=== PATIENT | male | born 1935 | race Caucasian/White ===

== ENCOUNTER 2023-05-03 23:09 | Inpatient (IN) | payer OTHER ==
[2023-05-03 23:54] LABS: Absolute Lymphocytes (CBC) 2.3 K/uL (0.7-4.9); Hematocrit 35.6 % (39.6-49.0); Lymphocytes % 27.1 % (15.3-44.8); MCV 89.2 fL (80-100); MPV 8.1 fL (7.6-11.3); RBC Red Blood Cell Count 3.99 M/uL (4.33-5.43)
[2023-05-03 23:57] LABS: Protime INR 1.05
[2023-05-04 00:12] LABS: Albumin 3.7 g/dL (3.4-5.0); Bilirubin Direct 0.1 mg/dL (0-0.2); Bilirubin Indirect, Calculated 0.2 mg/dL (0.2-0.8); Bilirubin Total 0.3 mg/dL (0.2-1.0); Protein, Total 8.2 g/dL (6.4-8.2)
[2023-05-04] MEDS ORDERED: ONDANSETRON 4 MG (ODT) TAB ONE (00:14)
[2023-05-04] MEDS ORDERED: HYDROCODONE/APAP 5/325 MG TAB ONE (00:14)
[2023-05-04] MEDS ORDERED: HYDROCODONE/APAP 10/325 TAB ONE (02:35)
[2023-05-04] MEDS ORDERED: DIPHENHYDRAMINE 25 MG TAB/CAP ONE (02:35)
--- NOTE | 2023-05-04 03:19 | EDPHYS ---
Physician Documentation [facility] Name: Les Abdi Age: 87 yrs Sex: Male : 1935 Arrival Date: 05/03/2023 Time: 23:09 Bed 7 Private MD: ED Physician John Paul Christensen HPI: 05/03 23:13 This 87 yrs old Male presents to ER via Unassigned with complaints of Nose sp4 Bleed. 05/04 01:05 Patient is 87-year-old male who presents with a cute onset of nosebleed bilateral sp4 starting just prior to arrival patient denied any prior history of nosebleeds, denied no speaking, patient states he takes baby aspirin once a day denied any other blood thinners. Historical: - Allergies: 05/03 23:22 No Known Allergies; kd3 - Immunization history:: Adult Immunizations up to date. - Social history:: Smoking status: Patient/guardian denies using tobacco, but has a distant history of tobacco abuse. - Family history:: not pertinent. ROS: 05/04 01:05 Constitutional: Negative for fever, chills, and weight loss, Eyes: Negative for injury, sp4 pain, redness, and discharge, ENT: Negative for injury, pain, and discharge, positive acute nosebleed. Neck: Negative for injury, pain, and swelling, Cardiovascular: Negative for chest pain, palpitations, and edema, Respiratory: Negative for shortness of breath, cough, wheezing, and pleuritic chest pain, Abdomen/GI: Negative for abdominal pain, nausea, vomiting, diarrhea, and constipation, Back: Negative for injury and pain, : Negative for injury, bleeding, discharge, and swelling, MS/Extremity: Negative for injury and deformity, Skin: Negative for injury, rash, and discoloration, Neuro: Negative for headache, weakness, numbness, tingling, and seizure, Psych: Negative for depression, anxiety, Allergy/Immunology: Negative for hives, rash, and allergies Endocrine: Negative for neck swelling, polydipsia, polyuria, polyphagia, and weight changes Hematologic/Lymphatic: Negative for swollen nodes, abnormal bleeding, and unusual bruising Exam: 03:12 Constitutional: This is a well developed, well nourished patient who is awake, alert, sp4 Head/Face: Normocephalic, atraumatic. Eyes: Pupils equal round and reactive to light, extra-ocular motions intact. Lids and lashes normal. Conjunctiva and sclera are not injected. Cornea within normal limits. Periorbital areas with no swelling, redness, or edema. ENT: Nares patent. No nasal discharge, no septal abnormalities noted. Tympanic membranes are normal and external auditory canals are clear. Moderate epistaxis right nostril appears anterior, is also some mild epistaxis from the left nostril. Patient is actively spitting blood with blood draining in the back of her throat Neck: Trachea midline, no thyromegaly or masses palpated, and no cervical lymphadenopathy. Supple, full range of motion without nuchal rigidity, or vertebral point tenderness. Chest/axilla: Normal chest wall appearance and motion. Nontender with no deformity. No lesions are appreciated. Cardiovascular: Regular rate and rhythm with a normal S1 and S2. No gallops, murmurs, or rubs. Normal PMI, no JVD. No pulse deficits. Respiratory: Lungs have equal breath sounds bilaterally, clear to auscultation and percussion. No rales, rhonchi or wheezes noted. No increased work of breathing, no retractions or nasal flaring. Abdomen/GI: Soft, non-tender, with normal bowel sounds. No distension or tympany. No guarding or rebound. No evidence of tenderness throughout. Back: No spinal tenderness. No costovertebral tenderness. Male : Normal genitalia with no discharge or lesions. Skin: Warm, dry with normal turgor. Normal color with no rashes, no lesions, and no evidence of cellulitis. MS/ Extremity: Pulses equal, no cyanosis. Neurovascular intact. Full, normal range of motion. Neuro: Awake and alert, GCS 15, oriented to person, place, time, and situation. Cranial nerves II-XII grossly intact. Motor strength 5/5 in all extremities. Sensory grossly intact. Psych: Awake, alert, with orientation to person, place and time. Behavior, mood, and affect are within normal limits 03:26 ECG was reviewed by the Attending Physician. Sinus rhythm at the rate of 68 with sinus sp4 arrhythmia, left axis deviation, no ST elevation or depression. Vital Signs: 05/03 23:17 BP 142 / 81; Pulse 88; Resp 19; Pulse Ox 100% on R/A; Weight 99.79 kg; Height 5 ft. 8 kd3 in. ; 23:21 Temp 98.3(O); kd3 05/04 00:34 BP 131 / 62; Pulse 80; Resp 18; Pulse Ox 97% on R/A; rv 01:21 BP 124 / 61; Pulse 84; Resp 18; Pulse Ox 96% on R/A; rv 03:30 BP 58 / 43; Pulse 58; kl 03:40 BP 92 / 48; Pulse 69; Resp 14 S; Pulse Ox 98% on 2 lpm NC; kl 04:06 BP 123 / 58; Pulse 82; Resp 14; Pulse Ox 100% on 2 lpm NC; kl 04:18 BP 128 / 65; kl 05/03 23:17 Body Mass Index 33.45 (99.79 kg, 172.72 cm) kd3 Procedures: 05/03 23:51 Epistaxis treatment: A moderate amount of bleeding noted from both nares. Treated using sp4 posterior packing, Bleeding decreased. Will repeat assessment in 1 hour to see if the bleeding clots off . 05/04 02:22 Epistaxis treatment: Right-sided nasal packing can to some extent. It was removed and a sp4 Rhino Rocket was inserted with resolution of nasal bleeding. . MDM: 05/03 23:22 Patient medically screened. sp4 05/04 03:12 Differential diagnosis: nasal fracture, trauma, sinusitis, epistaxis r/t trauma, sp4 spontaneous epistaxis. Data reviewed: vital signs, nurses notes, lab test result(s), CBC, electrolytes, hepatic panel. Consideration of Admission/Observation Patient was admitted/placed on observation. Escalation of care including admission/observation considered. Management of patient was discussed with the following: Hospitalist: Admission Team David ADAM . ED course: Initial nasal packing has failed to stop epistaxis, nasal packing was replaced with a right-sided Rhino Rocket, patient has after that became pale and had near syncopal episode in the ER. At this time patient warrants for admission some IV hydration also repeat CBC in the morning. Dr. De Souza with ENT is on-call but since there is no active epistaxis at this time will defer ENT consult to the admitting team. . 05/03 23:22 Order name: Basic Metabolic Panel; Complete Time: 01:04 sp4 05/03 23:22 Order name: CBC with Diff; Complete Time: 01:04 sp4 05/03 23:22 Order name: LFT's; Complete Time: 01:04 sp4 05/03 23:22 Order name: PT-INR; Complete Time: 01:04 sp4 05/04 03:33 Order name: CBC with Diff; Complete Time: 04:04 la1 05/04 03:11 Order name: EKG; Complete Time: 03:12 sp4 05/03 23:22 Order name: IV Saline Lock; Complete Time: 23:47 sp4 05/03 23:22 Order name: Labs collected and sent; Complete Time: 23:47 sp4 EC:26 Rate is 60 beats/min. Rhythm is irregular, Sinus arrythmia. Left axis deviation noted. sp4 DC interval is normal. QRS interval is prolonged. QT interval is normal. T waves are Inverted in leads V5, V6. Clinical impression: No evidence of ischemia. Interpreted by me. Administered Medications: 00:09 Drug: HYDROcodone-acetaminophen PO 5 mg-325 mg 2 tabs Route: PO; rv 02:30 Follow up: Response: No adverse reaction rv 00:09 Drug: Ondansetron PO 4 mg Route: PO; rv 02:30 Follow up: Response: No adverse reaction rv 02:30 Drug: Atco PO 10 mg-325 mg 1 tabs Route: PO; rv 02:30 Drug: diphenhydrAMINE PO 25 mg Route: PO; rv 03:17 Drug: NS 0.9% IV 1000 ml Route: IV; Rate: 125 ml/hr; Site: left antecubital; kl 03:38 Follow up: Rate change 999 bolus kl 04:18 Follow up: IV Status: Completed infusion; IV Intake: 1000ml kl Disposition Summary: 05/04/23 03:18 Hospitalization Ordered Hospitalization Status: Observation sp4 Provider: Jaime Arceo sp4 Location: Telemetry/[facility] (observation) sp4 Condition: Stable sp4 Problem: new sp4 Symptoms: have improved sp4 Bed/Room Type: Standard sp4 Room Assignment: 410(05/04/23 03:57) cg Diagnosis - Syncope Near sp4 - Epistaxis sp4 - Acute anterior epistaxis right side sp4 Forms: - Medication Reconciliation Form sp4 - SBAR form sp4 Signatures: Dispatcher [employer] EDClaudia Luevanoberly, RN RN David Parker, TANK WORKER-C TANK WORKER-Cla1 Maty Palencia, TEA RN Jarrell Laswon RN RN rv Doucette, Kyli, RN RN kd3 John Paul Christensen MD MD sp4 Corrections: (The following items were deleted from the chart) 03:57 03:18 sp4
--- NOTE | 2023-05-04 03:19 | ER ---
Nurse's Notes [facility] Name: Les Abdi Age: 87 yrs Sex: Male : 1935 Arrival Date: 05/03/2023 Time: 23:09 Bed 7 Private MD: Diagnosis: Syncope Near;Epistaxis;Acute anterior epistaxis right side Presentation: 05/03 23:17 Chief complaint: Patient states: I have never had a nosebleed before in my life and i kd3 was just sitting there, watching TV and it just started gushing. I do not take a blood thinner other than an Aspirin. It started about 10 o clock and stopped and then started again. I have not used any nose sprays for my allergies. Coronavirus screen: Vaccine status: Patient reports receiving the 2nd dose of the covid vaccine. Ebola Screen: No symptoms or risks identified at this time. Initial Sepsis Screen: Does the patient meet any 2 criteria? No. Patient's initial sepsis screen is negative. Does the patient have a suspected source of infection? No. Patient's initial sepsis screen is negative. Risk Assessment: Do you want to hurt yourself or someone else? Patient reports no desire to harm self or others. Onset of symptoms was May 03, 2023. 23:17 Method Of Arrival: Ambulatory kd3 23:17 Acuity: RAIN 3 kd3 Triage Assessment: 23:22 General: Appears uncomfortable, Behavior is calm, cooperative. Pain: Denies pain. kd3 Historical: - Allergies: 23:22 No Known Allergies; kd3 - Immunization history:: Adult Immunizations up to date. - Social history:: Smoking status: Patient/guardian denies using tobacco, but has a distant history of tobacco abuse. - Family history:: not pertinent. Screenin:[facility] ED Fall Risk Assessment (Adult) History of falling in the last 3 months, rv including since admission No falls in past 3 months (0 pts) Confusion or Disorientation No (0 pts) Intoxicated or Sedated No (0 pts) Impaired Gait No (0 pts) Mobility Assist Device Used No (0 pt) Altered Elimination No (0 pt) Score/Fall Risk Level 0 - 2 = Low Risk Oriented to surroundings, Maintained a safe environment, Educated pt \T\ family on fall prevention, incl call for assistance when getting out of bed, Assessed \T\ reinforced patient's understanding of fall precautions, Provided non-skid footwear, Hourly rounding (assess needs \T\ fall precautionary measures) done, Used ambulatory aids as needed (educated on \T\ assisted with), Used gait belt as appropriate. Abuse screen: Denies threats or abuse. Denies injuries from another. Nutritional screening: No deficits noted. Tuberculosis screening: No symptoms or risk factors identified. Assessment: 23:30 General: Appears uncomfortable, Behavior is calm, cooperative. rv 23:30 Pain: Denies pain. Neuro: Level of Consciousness is awake, alert, obeys commands, rv Oriented to person, place, time, situation. Cardiovascular: Capillary refill < 3 seconds Rhythm is regular. Respiratory: Airway is patent Respiratory effort is even, unlabored. EENT: Nares with bleeding noted bilaterally. 05/04 03:36 Reassessment: pt lethargic diaphoretic BP 58 systolic MD notified NS bolus initiated pt kl awakens to verbal command answers appropriately pt reports dizziness. 03:57 Cardiovascular: Rhythm is sinus rhythm with multifocal PVCs. kl 04:18 Reassessment: Patient is alert, oriented x 3, equal unlabored respirations, skin kl warm/dry/pink. Patient denies pain at this time. Patient states feeling better. Patient states symptoms have improved. Vital Signs: 05/03 23:17 BP 142 / 81; Pulse 88; Resp 19; Pulse Ox 100% on R/A; Weight 99.79 kg; Height 5 ft. 8 kd3 in. ; 23:21 Temp 98.3(O); kd3 05/04 00:34 BP 131 / 62; Pulse 80; Resp 18; Pulse Ox 97% on R/A; rv 01:21 BP 124 / 61; Pulse 84; Resp 18; Pulse Ox 96% on R/A; rv 03:30 BP 58 / 43; Pulse 58; kl 03:40 BP 92 / 48; Pulse 69; Resp 14 S; Pulse Ox 98% on 2 lpm NC; kl 04:06 BP 123 / 58; Pulse 82; Resp 14; Pulse Ox 100% on 2 lpm NC; kl 04:18 BP 128 / 65; kl 05/03 23:17 Body Mass Index 33.45 (99.79 kg, 172.72 cm) kd3 ED Course: 05/03 23:11 Patient arrived in ED. ja2 23:13 John Paul Christensen MD is Attending Physician. sp4 23:19 Triage completed. kd3 23:22 Arm band placed on left wrist. kd3 23:30 Jarrell Garcia, RN is Primary Nurse. rv 23:30 Inserted saline lock: 20 gauge in left antecubital area, using aseptic technique. Blood rv collected. 23:52 Patient has correct armband on for positive identification. Placed in gown. Bed in low rv position. Call light in reach. Side rails up X 1. Client placed on continuous cardiac and pulse oximetry monitoring. NIBP monitoring applied. 05/04 03:17 Jaime Arceo MD is Hospitalizing Provider. sp4 03:50 Inserted saline lock: 20 gauge in right antecubital area, using aseptic technique. kl Blood collected. 03:57 CBC with Diff Sent. kl 04:26 No provider procedures requiring assistance completed. Patient admitted, IV remains in kl place. Administered Medications: 00:09 Drug: HYDROcodone-acetaminophen PO 5 mg-325 mg 2 tabs Route: PO; rv 02:30 Follow up: Response: No adverse reaction rv 00:09 Drug: Ondansetron PO 4 mg Route: PO; rv 02:30 Follow up: Response: No adverse reaction rv 02:30 Drug: [place] PO 10 mg-325 mg 1 tabs Route: PO; rv 02:30 Drug: diphenhydrAMINE PO 25 mg Route: PO; rv 03:17 Drug: NS 0.9% IV 1000 ml Route: IV; Rate: 125 ml/hr; Site: left antecubital; kl 03:38 Follow up: Rate change 999 bolus kl 04:18 Follow up: IV Status: Completed infusion; IV Intake: 1000ml Medication: 05/03 23:52 VIS not applicable for this client. rv Intake: 05/04 04:18 IV: 1000ml; Total: 1000ml. kl Outcome: 03:18 Decision to Hospitalize by Provider. sp4 04:25 Admitted to Tele via stretcher, Report called to adrian brown 04:25 Condition: stable 04:25 Demonstrated understanding of instructions. 04:55 Patient left the ED. Signatures: Stella Reno RN RN Jarrell Hill, TEA RN rv Vibha Cameron Kyli RN RN kd3 John Paul Christensen MD MD sp4 Corrections: (The following items were deleted from the chart) 05/03 23:20 23:17 Chief complaint: Patient states: I have never had a nosebleed before in my life kd3 and i was just sitting there, watching TV and it just started gushing. I do not take a blood thinner other than an Aspirin. kd3
[2023-05-04] MEDS ORDERED: NA CHLORIDE 0.9% 1,000 ML ONE (03:20)
[2023-05-04 04:00] LABS: Absolute Lymphocytes (CBC) 3.4 K/uL (0.7-4.9); Hematocrit 29.8 % (39.6-49.0); Lymphocytes % 27.1 % (15.3-44.8); MCV 89.4 fL (80-100); MPV 7.9 fL (7.6-11.3); RBC Red Blood Cell Count 3.33 M/uL (4.33-5.43)
--- NOTE | 2023-05-04 04:00 | P.HP ---
Certification for Inpatient Patient admitted to: Observation With expected LOS: <2 Midnights Patient will require the following post-hospital care: None Practitioner: I am a practitioner with admitting privileges, knowledge of patient current condition, hospital course, and medical plan of care. Services: Services provided to patient in accordance with Admission requirements found in Title 42 Section 412.3 of the Code of Federal Regulations <ManuelDavid Denis - Last Filed: 05/04/23 03:56> Patient History Date of Service: 05/04/23 Reason for admission: Epistaxis History of Present Illness: 87-year-old male with history of prostate cancer presents to the emergency department chief complaint of nosebleed. He reports he takes a daily aspirin, this evening he developed a spontaneous nosebleed, he has never had this problem before no trauma of any kind. In the ER he was evaluated found to have a right anterior epistaxis. Initially nasal packing was attempted without significant improvement, Rhino Rocket was placed in the right nare, packing in the left nare. Bleeding has since slowed, his labs are significant for hemoglobin 10.7 hematocrit 35.6 initially PT 11.5 INR 1.05 chemistry unremarkable. After bleeding has slowed patient attempted to get out of bed to use restroom and had a near syncopal episode, became hypotensive and diaphoretic. For this reason ED provider wishes to admit under observation. - Past Medical/Surgical History -: Prostate cancer -: Prostate surgery -: Cholecystectomy -: Bilateral knee replacement -: Hip surgery Psychosocial/ Personal History: Patient is retired and lives at home with his - Family History Brother -: Cancer - Social History Smoking Status: Never smoker Alcohol use: Yes CD- Drugs: No Caffeine use: Yes Place of Residence: Home <David Jackson - Last Filed: 05/04/23 03:56> Date of Service: 05/04/23 <Roque Berry - Last Filed: 05/04/23 16:38> Review of Systems 10-point ROS is otherwise unremarkable ENT: Other (Epistaxis) Gastrointestinal: Nausea <David Jackson - Last Filed: 05/04/23 03:56> Physical Examination - Physical Exam General: Alert, In no apparent distress, Oriented x3 HEENT: Atraumatic, PERRLA, Mucous membr. moist/pink, Other (Rhino Rocket present right nare, nasal packing present left nare.), EOMI, Sclerae nonicteric Neck: Supple, 2+ carotid pulse no bruit, No LAD, Without JVD or thyroid abnormality Respiratory: Clear to auscultation bilaterally, Normal air movement Cardiovascular: Regular rate/rhythm, Normal S1 S2 Capillary refill: <2 Seconds Gastrointestinal: Normal bowel sounds, No tenderness Musculoskeletal: No tenderness Integumentary: No rashes Neurological: Normal speech, Normal strength at 5/5 x4 extr, Normal tone, Normal affect - Studies Laboratory Data (last 24 hrs) 05/03/23 23:40: PT 11.5, INR 1.05 05/03/23 23:40: WBC 8.40, Hgb 11.7 L, Hct 35.6 L, Plt Count 158 05/03/23 23:40: Sodium 137, Potassium 4.0, BUN 32 H, Creatinine 1.24, Glucose 131 H, Total Bilirubin 0.3, AST 19, ALT 24, Alkaline Phosphatase 68 <David Jackson - Last Filed: 05/04/23 03:56> - Studies Laboratory Data (last 24 hrs) 05/03/23 23:40: PT 11.5, INR 1.05 05/03/23 23:40: WBC 8.40, Hgb 11.7 L, Hct 35.6 L, Plt Count 158 05/03/23 23:40: Sodium 137, Potassium 4.0, BUN 32 H, Creatinine 1.24, Glucose 131 H, Total Bilirubin 0.3, AST 19, ALT 24, Alkaline Phosphatase 68 <Rqoue Berry - Last Filed: 05/04/23 16:38> Assessment and Plan - Plan Assessment: Epistaxis-resolved Near syncope Prostate cancer Plan: Epistaxis-resolved Near syncope Per ER physician patient had a right anterior epistaxis which was resistant to treatment with nasal packing. Now with Rhino Rocket in the right nare, packing in left nare. Had a near syncopal episode after bleeding had been controlled where he became diaphoretic and hypotensive. Will repeat CBC, trend hemoglobin/hematocrit. Transfuse as necessary. Continue gentle IV fluids. Will obtain ENT consult. Prostate cancer Continue outpatient management. DVT PPX: SCD Code status: Full Discharge Plan: Home Plan to discharge in: 24 Hours - Advance Directives Does patient have a Living Will: No Does patient have a Durable POA for Healthcare: No - Code Status/Comfort Care Code Status Assessed: Yes (Full code) Critical Care: No Time Spent Managing Pts Care (In Minutes): 55 <David Jackson - Last Filed: 05/04/23 03:56> Physician Review: Patient Assessed, Agree with Above Assessment and Plan <Roque Berry - Last Filed: 05/04/23 16:38>
[2023-05-04 04:59] VITALS: BMI 33.4
[2023-05-04] MEDS ORDERED: ACETAMINOPHEN 500 MG TAB PO PRN (05:00)
[2023-05-04] MEDS ORDERED: ONDANSETRON 4 MG/2 ML VIAL IV PRN (05:00)
[2023-05-04] MEDS: NA CHLORIDE 0.9% 1,000 ML IV SCH ×2 (05:04→08:56)
[2023-05-04 05:26] VITALS: O2SAT 2
[2023-05-04 09:00] LABS: Hematocrit 28.9 % (39.6-49.0)
[2023-05-04] MEDS: ACETAMINOPHEN 325 MG TABLET PO PRN (13:25)
[2023-05-04] MEDS: CEPHALEXIN 500 MG CAP PO SCH ×2 (13:25→20:42)
[2023-05-04 14:53] LABS: Hematocrit 30.3 % (39.6-49.0)
--- NOTE | 2023-05-04 16:28 | EKG ---
Test Date: 2023-05-04 Test Time: 03:22:04 Clinical Investigator: HUGO MEASUREMENT RESULTS: Intervals: Rate: 60 MD: 182 QRSD: 130 QT: 452 QTc: 452 [place]: P: 47 MD: 182 QRS: -40 T: 235 INTERPRETIVE STATEMENTS: Sinus rhythm with marked sinus arrhythmia Left axis deviation Nonspecific intraventricular block Nonspecific T wave abnormality Abnormal ECG No previous ECG available for comparison Electronically Signed On 05-04-23 16:27:08 CDT by Dawson Blanca
--- NOTE | 2023-05-04 17:08 | CON ---
Date of Consultation: 05/04/2023 Chief Complaint: Nasal epistaxis. History Of Present Illness: Patient is a pleasant 87-year-old male with a history of prostate cancer , presented to the emergency department with a chief complaint of right nasal cavity nosebleed. He r eports that he takes a daily aspirin and he developed a spontaneous nosebleed yesterday evening. He denies any prior history of nasal trauma or nasal epistaxis or bleeding disorders. In the emergency room, he was initially evaluated to have right anterior epistaxis and a Rhino Rocket was placed into the right naris as well as a Merocel pack in the left nasal cavity. He was then admitted to [facility] and I was consulted for further evaluation. After the bleeding episode, he did become syncopal y esterday evening, but he denies any lightheadedness or diaphoresis. He is complaining of 7/10 nasal pain extending up into the forehead and he complains of mild nausea. However, he denies any posterio r oropharyngeal bleeding or blood coming out of the anterior naris. No other ENT complaints today. Past Medical And Surgical History: Prostate cancer, prostate surgery, cholecystectomy, bilateral kne e replacement, hip surgery. Psychosocial History: Patient is retired and lives at home with his . Additional Social History: Denies tobacco and uses alcohol and no drugs. Positive for caffeine use, and place of residence is home. Medication List: Patient did not bring an updated medication list, but is supposedly bringing s oon. Patient currently takes baby aspirin, but held it after bleeding episode. Allergies: NO KNOWN DRUG ALLERGIES. Family History: Brother positive for cancer. Review of Systems: Constitutional: Denies lightheadedness, diaphoresis, lethargy. Head: Positive for frontal headache. Negative for trauma. Eyes: Negative for drainage, blurred or double vision. Ears: Negative for otalgia, hearing loss, tinnitus, ear pain or drainage. Nose: Positive for bilateral nosebleed and nasal congestion secondary to nasal packing. Positive fo r moderate rhinorrhea. Throat: Negative for pain, posterior oropharyngeal blood, dysphagia, or odynophagia. Physical Examination: Vital Signs: Stable. General: Patient is awake, alert, and oriented, in no apparent distress. However, he is having mode rate nasal and forehead headache. He is oriented x3. Head: Atraumatic, normocephalic. Eyes: PERRLA/EOMI. Ears: Deferred. Nose: Bilateral nasal packing intact with no evidence of active bleeding or blood clots. Oral Cavity: Moist mucosa. Midline uvula, and no posterior oropharyngeal blood or blood clots detec libertad. Neck: Supple. Trachea midline. No lymphadenopathy or thyromegaly palpated. Laboratory Data: Initial hemoglobin was 10.7, which reduced I believe to 9.9, hematocrit was 35.6, a nd PT was 11.5 and INR was 1.05. Diagnoses: 1.Acute bilateral nasal epistaxis, resolved. 2.Near-syncope. 3.Nausea. 4.Headache. 5.History of prostate cancer. Recommendations: 1.The patient keep the packs in as bleeding has stopped. We will watch his hemoglobin and hematocri t stabilized. He is able to eat for now, but then will have him n.p.o. after midnight tonight. 2.Start Keflex 500 mg 1 p.o. t.i.d. 3.Current Tylenol and ondansetron for nausea and headache. 4.Plan is to remove the packs outpatient as we need the aspirin to get out of his system and this wi ll take several days. 5.My business card and my epistaxis protocol was given to the patient. 6.We will follow as needed. PRANEETH/SUSAN Voice ID: [id number] Report ID: [id number]
[2023-05-04 20:50] LABS: Hematocrit 29.4 % (39.6-49.0)
[2023-05-05 04:21] LABS: Absolute Lymphocytes (CBC) 1.2 K/uL (0.7-4.9); Lymphocytes % 10.5 % (15.3-44.8); MCV 88.7 fL (80-100); RBC Red Blood Cell Count 3.05 M/uL (4.33-5.43)
[2023-05-05 04:34] LABS: Potassium 4.1 mEq/L (3.5-5.1)
[2023-05-05 04:35] LABS: Protime INR 1.18
[2023-05-05] MEDS: CEPHALEXIN 500 MG CAP PO SCH ×3 (08:28→20:58)
[2023-05-05] MEDS: BICALUTAMIDE 50 MG PO SCH (11:00)
--- NOTE | 2023-05-05 11:07 | P.PN ---
Subjective Date of Service: 05/05/23 Chief Complaint: Epistaxis Overnight, he had two separate episodes of asymptomatic nonsustained ventricular tachycardia. Per telemetry officer, he had one episode of 4 beats of V. tach followed by another separate episode of 7 beats of V. tach. He reports that he feels well this morning. He denies any chest pain or palpitations. He states that his bleeding has slowed down, but his hemoglobin continues to drift downward. Per Dr. Booker, can plan for discharge with nasal packing once bleeding has stopped and hemoglobin has stabilized. We anticipate that this may take several days given that he took aspirin. Review of Systems 10-point ROS is otherwise unremarkable ENT: Other (epistaxis) Physical Examination - Vital Signs Temperature: 98.4 F Blood Pressure: 147/72 Pulse: 86 Respirations: 18 Pulse Ox (%): 95 - Physical Exam General: Alert, In no apparent distress, Oriented x3 HEENT: Atraumatic, Mucous membr. moist/pink, Other (Bilateral nares with nasal packing. Dried blood noted on packing. No active bleeding appreciated.), Sclerae nonicteric Neck: JVD not distended Respiratory: Clear to auscultation bilaterally, Normal air movement Cardiovascular: No edema, Regular rate/rhythm, Normal S1 S2, No gallops, No rubs, No murmurs Gastrointestinal: Normal bowel sounds, Soft and benign, Non-distended, No tenderness, No rebound, No guarding Musculoskeletal: No clubbing Integumentary: No rashes Neurological: Normal speech, Normal affect Assessment And Plan - Plan # Acute Blood Loss Anemia suspect due to Severe Epistaxis - Consulted Otorhinolaryngology and spoke with Dr. Booker - recommendations appreciated - Bilateral nares are packed per ENT - Prophylactic cephalexin while nares packed - Serial H&H - Serial Hgb: 11.7 - > 9.9 -> 9.8 -> 10.1 -> 9.7 -> 9.1 - Transfuse for Hgb < 7.0 - 2 large bore IVs - Hold home aspirin - Epistaxis protocol per ENT # Non-sustained Ventricular Tachycardia - Per tele, two episodes of V. Tach (one lasting 4 beats and another lasting 7 beats) - He was asymptomatic during these episodes - Potassium level acceptable - Ordered magnesium level - Continue to monitor telemetry # Prostate Cancer - Continue home bicalutamide # Dyslipidemia - Continue home simvastatin Roque Berry M.D.
[2023-05-05] MEDS: NA CHLORIDE 0.9% 1,000 ML IV SCH ×2 (15:22→20:55)
[2023-05-05 16:29] LABS: Hematocrit 26.1 % (39.6-49.0)
[2023-05-05] MEDS: ATORVASTATIN 10 MG TAB PO SCH (20:58)
[2023-05-06 04:35] LABS: Absolute Lymphocytes (CBC) 1.4 K/uL (0.7-4.9); Hematocrit 23.7 % (39.6-49.0); Lymphocytes % 12.4 % (15.3-44.8); MPV 8.4 fL (7.6-11.3); RBC Red Blood Cell Count 2.66 M/uL (4.33-5.43)
[2023-05-06 04:58] LABS: Potassium 3.9 mEq/L (3.5-5.1)
[2023-05-06] MEDS: CEPHALEXIN 500 MG CAP PO SCH ×3 (08:49→21:07)
[2023-05-06] MEDS: BICALUTAMIDE 50 MG PO SCH (08:49)
[2023-05-06] MEDS: NA CHLORIDE 0.9% 1,000 ML IV SCH ×2 (10:07→16:55)
[2023-05-06 11:35] LABS: Hematocrit 22.6 % (39.6-49.0)
[2023-05-06 18:52] LABS: Hematocrit 21.3 % (39.6-49.0)
--- NOTE | 2023-05-06 19:10 | P.PN ---
Subjective Date of Service: 05/06/23 Chief Complaint: Epistaxis No acute events overnight. He denies any active bleeding from his nose; however, his hemoglobin continues to down-trend. Discussed case with Dr. Booker, who believes he can be discharged home once his hemoglobin stabilizes. She is planning to remove his nasal packing in her office. He denies any chest pain, palpitations, or shortness of breath. Review of Systems 10-point ROS is otherwise unremarkable ENT: Other (epistaxis) Physical Examination - Vital Signs Temperature: 99.2 F Blood Pressure: 127/60 Pulse: 95 Respirations: 18 Pulse Ox (%): 96 Assessment And Plan - Plan - Physical Exam General: Alert, In no apparent distress, Oriented x3 HEENT: Atraumatic, Mucous membr. moist/pink, Other (Bilateral nares with nasal p acking. Dried blood noted on packing. No active bleeding appreciated.), Sclerae nonicteric Neck: JVD not distended Respiratory: Clear to auscultation bilaterally, Normal air movement Cardiovascular: No edema, Regular rate/rhythm, No murmurs Gastrointestinal: Normal bowel sounds, Soft, Non-distended, No tenderness Musculoskeletal: No clubbing Integumentary: No rashes Neurological: Normal speech, Normal affect # Acute Blood Loss Anemia due to Severe Epistaxis - Consulted Otorhinolaryngology and spoke with Dr. Booker - recommendations appreciated - Bilateral nares are packed per ENT - Prophylactic cephalexin while nares packed - Per Dr. Booker, plan to monitor H&H - once stable, plan for outpatient follow-up to remove nasal packing in her office - Serial H&H - Serial Hgb: 11.7 - > 9.9 -> 9.8 -> 10.1 -> 9.7 -> 9.1 -> 8.7 -> 7.9 - Transfuse for Hgb < 7.0 - 2 large bore IVs - Hold home aspirin - Epistaxis protocol per ENT # Non-sustained Ventricular Tachycardia - Per tele, two episodes of V. Tach (one lasting 4 beats and another lasting 7 beats) - He was asymptomatic during these episodes - Potassium and magnesium levels acceptable - Continue to monitor telemetry # Prostate Cancer - Continue home bicalutamide # Dyslipidemia - Continue home simvastatin Roque Berry M.D.
[2023-05-06] MEDS: ATORVASTATIN 10 MG TAB PO SCH (21:07)
[2023-05-06] MEDS: ACETAMINOPHEN 325 MG TABLET PO PRN (23:58)
[2023-05-07 05:55] LABS: Potassium 3.7 mEq/L (3.5-5.1)
[2023-05-07 08:16] LABS: Absolute Lymphocytes (CBC) 1.5 K/uL (0.7-4.9); Hematocrit 21.1 % (39.6-49.0); Lymphocytes % 16.3 % (15.3-44.8); MCV 89.2 fL (80-100); MPV 7.8 fL (7.6-11.3); RBC Red Blood Cell Count 2.36 M/uL (4.33-5.43)
[2023-05-07] MEDS: BICALUTAMIDE 50 MG PO SCH (09:00)
[2023-05-07] MEDS: CEPHALEXIN 500 MG CAP PO SCH ×3 (09:23→21:59)
--- NOTE | 2023-05-07 11:48 | P.PN ---
Date of Service: 05/07/23 Subjective: ROS: 10 point ROS as noted above, otherwise negative Physical Exam: GEN: Alert, oriented, NAD HEENT: Normal conjunctiva, sclera anicteric, Bilateral nares with nasal packing. Dried blood noted on packing CV: Regular rate & rhythm, no edema Pulm: Nonlabored respiraitons on room air ABD: Soft, nontender, nondistended MSK: No joint tenderness Integumentary: No rashes Neuro: Normal speech, normal affect vitals reviewed Problem List: Acute Blood Loss Anemia due to Severe Epistaxis Non-sustained Ventricular Tachycardia Prostate Cancer Dyslipidemia Acute Blood Loss Anemia due to Severe Epistaxis ENT Consulted - Dr. Booker Bilateral nares are packed per ENT Prophylactic cephalexin while nares packed monitor H&H - once stable, plan for outpatient follow-up to remove nasal packing in her office serial H&H. Transfuse for Hgb < 7.0 hgb 7.1 -> 7.0 (05/07) 1 uPRBC ordered (05/07) Hold home aspirin Epistaxis protocol per ENT Non-sustained Ventricular Tachycardia Per tele, two episodes of V. Tach (one lasting 4 beats and another lasting 7 beats) asymptomatic during these episodes - Potassium and magnesium levels acceptable continue to monitor on telemetry Prostate Cancer Continue home bicalutamide Dyslipidemia Continue home simvastatin VTE: SCD Code: Full Dispo: Home
[2023-05-07] MEDS: NA CHLORIDE 0.9% 1,000 ML IV SCH (13:00)
[2023-05-07] MEDS ORDERED: NA CHLORIDE 0.9% 250 ML ONE ×2 (15:23→21:31)
[2023-05-07] MEDS: ATORVASTATIN 10 MG TAB PO SCH (21:59)
[2023-05-08 03:41] LABS: Hematocrit 27.3 % (39.6-49.0)
[2023-05-08] MEDS: CEPHALEXIN 500 MG CAP PO SCH (07:49)
[2023-05-08] MEDS: NA CHLORIDE 0.9% 1,000 ML IV SCH (07:50)
[2023-05-08] MEDS: BICALUTAMIDE 50 MG PO SCH (07:50)
[2023-05-08 08:59] VITALS: BP 121/59; TEMP 98.1
--- NOTE | 2023-05-08 10:40 | P.PN ---
Date of Service: 05/06/23 ENT Progress Note Patient seen and examined. Per patient no active bleeding or blood clots and patient not coughing up blood since packs were placed. Packs are uncomfortable but not intolerable and is currently on prn pain meds and cephalexin antibiotics. Hgb has dropped to 7.0 today per IM. Exam: right nasal rhinorocket intact and small merocel pack intact, left nasal cavity. No active bleeding. Oropharynx: intact no bleeding. Impression: 1. Acute bilateral epistaxis-- stable 2. Low hemoglobin Recommendation: 1. Recommned blood transfusion first before pulling packs 2. Plan is to pull the packs once Hgb trends up
--- NOTE | 2023-05-08 11:12 | P.PN ---
Date of Service: 05/08/23 ENT Progress Note Patient seen and examined. Per patient no active bleeding or blood clots and patient not coughing up blood since packs were placed. Packs are uncomfortable but not intolerable and is currently on prn pain meds and cephalexin antibiotics. Patient was given 2 units of PRBCs and hgb has increased above 9.0. Exam: right nasal rhinorocket intact and small merocel pack intact, left nasal cavity. No active bleeding. Oropharynx: intact no bleeding. Both packs were pulled today and antibiotic ointment coated Surgicel was inserted into bilateral nasal cavities. Moustache dressing was applied. Patient tolerated well and posterior oropharynx is clear with no bleeding. Impression: 1. Acute bilateral epistaxis-- resolved. 2. Low hemoglobin--resolved s/p transfusion. Recommendation: 1. May d/c home and f/up with me in one week. 2. Recommend PCP f/up to assess for anemia, hematologic issue that may have contributed to nasal bleeding and significant drop in Hgb.
--- NOTE | 2023-05-08 12:41 | P.DS ---
Admission Date: 05/07/23 Discharge Date: 05/08/23 Disposition: ROUTINE DISCHARGE Discharge Condition: FAIR Reason for Admission: Epistaxis Brief History of Present Illness: Patient is 87 years of age admitted with sudden onset of epistaxis and drop in his hemoglobin Hospital Course: Admitted to the hospital by ENT he did have some nasal packing done there was a significant drop in his hemoglobin by at least [address] Jhony MATHIAS informed me that she did not see any visible bleeding sure is actually from the epistaxis indicates patient to follow-up with ENT and his primary care physician continue to monitor his hemoglobin and aspirin will go home on some antibiotic time of discharge he was alert no further bleeding vital signs all stable started hemoglobin 9.3 Vital Signs/Physical Exam: Temp Pulse Resp BP Pulse Ox 98.1 F 86 20 121/59 L 95 05/08/23 08:00 05/08/23 08:00 05/08/23 08:00 05/08/23 08:00 05/08/23 08:00 Laboratory Data at Discharge: WBC 9.00 thou/uL (4.3-10.9) 05/07/23 08:00 Hgb 9.3 g/dL (13.6-17.9) L D 05/08/23 03:27 Hct 27.3 % (39.6-49.0) L 05/08/23 03:27 Plt Count 125 thou/uL (152-406) L 05/07/23 08:00 PT 13.0 SECONDS (9.5-12.5) H 05/05/23 03:57 INR 1.18 05/05/23 03:57 Sodium 143 mEq/L (136-145) 05/07/23 05:04 Potassium 3.7 mEq/L (3.5-5.1) 05/07/23 05:04 BUN 27 mg/dL (7-18) H 05/07/23 05:04 Creatinine 0.89 mg/dL (0.70-1.30) 05/07/23 05:04 Glucose 121 mg/dL (74-106) H 05/07/23 05:04 Magnesium 2.2 mg/dL (1.6-2.4) 05/05/23 15:53 Total Bilirubin 0.3 mg/dL (0.2-1.0) 05/03/23 23:40 AST 19 U/L (15-37) 05/03/23 23:40 ALT 24 U/L (16-61) 05/03/23 23:40 Alkaline Phosphatase 68 U/L (45-117) 05/03/23 23:40 Home Medications: Bicalutamide 50 mg PO DAILY 05/04/23 Calcium Carbonate [Calcium] 500 mg PO BID 05/04/23 Glucos Sul 2Kcl/MSM/Chond/C/Mn [Glucosamine Chondroitin Cap] 1 each PO DAILY 05/04/23 Multivitamin/Iron/Folic Acid [Centrum Adults Tablet] 1 each PO DAILY 05/04/23 Simvastatin 20 mg PO BEDTIME 05/04/23 Cephalexin [Keflex*] 500 mg PO TID 7 Days #21 cap 05/08/23 New Medications: Cephalexin [Keflex*] 500 mg PO TID 7 Days #21 cap Physician Discharge Instructions: PROBLEM: Epistaxis, Anemia GOAL: Clear understanding of disease process INSTRUCTIONS: Please call Dr. Booker's office to schedule an appointment for Sunday. Please take medication as prescribed. Hold Aspirin If symptoms worsen, please go to the nearest ER. If you have any questions, please feel free to call . Diet: Regular Activity: Ad jessica DME DME: Date Ordered: Name of Company: [employer] Services Needed: None Name of Company: Date or Referral: IMMUNIZATION Influenza Vaccine Indicated: Influenza Vaccine Given: Date Given: Pneumonia Vaccine Indicated: No Pneumonia Vaccine Given: Date Given: Diet: Regular Activity: Ad jessica Followup: Liza Booker, [ACTIVE - CAN ADMIT] - (call to schedule appoiment for sunday)
== END 2023-05-08 09:55 | disposition home or self-care (01) | DRG 812 ==
LOC: ER 23:09 → 4TH 05-04 03:49 → OBSVTOIN 05-07 13:21
PROVIDERS: ADMIT Internal Medicine; ATTEND Internal Medicine Sleep Medicine
PROC: 2Y41X5Z Packing of Nasal Region using Packing Material (ICD-10-PCS; principal; 2023-05-07)
PROC: 30233N1 Transfusion of Nonautologous Red Blood Cells into Peripheral Vein, Percutaneous Approach (ICD-10-PCS; 2023-05-07)
DX: D62 Acute posthemorrhagic anemia (principal); I47.20 Ventricular tachycardia, unspecified; R04.0 Epistaxis; E78.5 Hyperlipidemia, unspecified; R51.9 Headache, unspecified; R11.0 Nausea; J34.89 Other specified disorders of nose and nasal sinuses; I95.9 Hypotension, unspecified; C61 Malignant neoplasm of prostate; R61 Generalized hyperhidrosis; Z79.82 Long term (current) use of aspirin; Z79.899 Other long term (current) drug therapy; Z96.653 Presence of artificial knee joint, bilateral; Z90.49 Acquired absence of other specified parts of digestive tract; Z80.9 Family history of malignant neoplasm, unspecified
CPT/HCPCS: 30901; 36415; 36430; 80048; 80076; 83735; 85014; 85018; 85025; 85610; 86850; 86900; 86901; 86920; 93005; 96360; 99285; G0378; J2405; J7030; J7050; P9016; Q0162

== ENCOUNTER 2023-08-27 19:59 | Observation (INO) | payer OTHER ==
--- OUTSIDE RECORDS SUMMARY | 2023-08-27 20:02 | XMS REPORT | Continuity of Care Document ---
:1935 Author Organization [facility] t Address [address] [facility] [address] [place] [id number] Care Team Providers Name Role Phone Romi Walters Attending Clinician Unavailable Problems This patient has no known problems. Allergies, Adverse Reactions, Alerts This patient has no known allergies or adverse reactions. Medications This patient has no known medications. Procedures This patient has no known procedures. Encounters Start End Encounter Admission Attending Care Care Encounter Source Date/Time Date/Time Type Type Clinicians Facility Department ID 2023-05-22 Outpatient ANA ROSA Walters [facility] [id number] Common 08:27:01 Romi [id number] [facility] 2023-05-09 Outpatient ANA ROSA Walters [facility] [id number] Common 14:50:01 Romi [id number] [facility] Results This patient has no known results.
[2023-08-27 20:37] LABS: Absolute Lymphocytes (CBC) 1.5 K/uL (0.7-4.9); Lymphocytes % 17.1 % (15.3-44.8); MCV 85.8 fL (80-100); MPV 7.7 fL (7.6-11.3); Platelets 185 thou/uL (152-406); RBC Red Blood Cell Count 3.84 M/uL (4.33-5.43)
--- NOTE | 2023-08-27 20:37 | ER ---
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 pt as6 had a nose bleed in the past and lost 5 letters of blood and had to receive a transfusion. Coronavirus screen: At this time, the client does not indicate any symptoms associated with coronavirus-19. Ebola Screen: No symptoms or risks identified at this time. Initial Sepsis Screen: Does the patient meet any 2 criteria? No. Patient's initial sepsis screen is negative. Does the patient have a suspected source of infection? No. Patient's initial sepsis screen is negative. Risk Assessment: Do you want to hurt yourself or someone else? Patient reports no desire to harm self or others. Onset of symptoms was August 27, 2023. 20:14 Acuity: RAIN 3 as6 20:14 Method Of Arrival: EMS: [facility] as6 Triage Assessment: 20:30 General: Appears in no apparent distress. uncomfortable, Behavior is calm, cooperative. jw7 Pain: Denies pain. EENT: Nares with bleeding noted. Neuro: Morris Agitation-Sedation Scale (RASS): 0 - Alert and Calm. Cardiovascular: No deficits noted. Capillary refill < 3 seconds Clubbing of nail beds is absent JVD is absent Patient's skin is warm and dry. Respiratory: Airway is patent Trachea midline Respiratory effort is even, unlabored, Respiratory pattern is regular, symmetrical. GI: No deficits noted. No signs and/or symptoms were reported involving the gastrointestinal system. Abdomen is round non-distended. : No deficits noted. No signs and/or symptoms were reported regarding the genitourinary system. Derm: Skin is intact, is healthy with good turgor, Skin is dry, Skin is normal, Skin temperature is warm. Musculoskeletal: No signs and/or symptoms reported regarding the musculoskeletal system. Circulation, motion, and sensation intact. Range of motion: intact in all extremities. Historical: - Allergies: 20:12 No Known Allergies; as6 - PMHx: 20:12 prostate cancer; Hypercholesterolemia; as6 - PSHx: 20:12 Cholecystectomy; knee; hip; as6 - Immunization history:: Adult Immunizations up to date. - Social history:: Smoking status: Patient denies any tobacco usage or history of. - Family history:: not pertinent. Screenin:30 [facility] ED Fall Risk Assessment (Adult) History of falling in the last 3 months, jw7 including since admission No falls in past 3 months (0 pts) Confusion or Disorientation No (0 pts) Intoxicated or Sedated No (0 pts) Impaired Gait Yes (1 pt) Mobility Assist Device Used No (0 pt) Altered Elimination No (0 pt) Score/Fall Risk Level 0 - 2 = Low Risk Oriented to surroundings, Maintained a safe environment. Abuse screen: Denies threats or abuse. Denies injuries from another. Nutritional screening: No deficits noted. Tuberculosis screening: No symptoms or risk factors identified. Assessment: 20:40 General: see triage assessment. jw7 21:30 Reassessment: Patient appears in no apparent distress at this time. No changes from jw7 previously documented assessment. Patient and/or family updated on plan of care and expected duration. Pain level reassessed. Patient is alert, oriented x 3, equal unlabored respirations, skin warm/dry/pink. 22:40 Reassessment: Patient appears in no apparent distress at this time. No changes from jw7 previously documented assessment. Patient and/or family updated on plan of care and expected duration. Pain level reassessed. Patient is alert, oriented x 3, equal unlabored respirations, skin warm/dry/pink. 23:46 Reassessment: Patient appears in no apparent distress at this time. Patient and/or jw7 family updated on plan of care and expected duration. Pain level reassessed. Patient is alert, oriented x 3, equal unlabored respirations, skin warm/dry/pink. Vital Signs: 20:12 BP 124 / 55; Pulse 81; Resp 18 S; Temp 97.4(O); Pulse Ox 99% on R/A; Weight 96.16 kg as6 (R); Height 5 ft. 8 in. (R); Pain 0/10; 21:00 BP 148 / 67; Pulse 85; Resp 18 S; Pulse Ox 99% on R/A; jw7 22:00 BP 138 / 61; Pulse 86; Resp 17 S; Pulse Ox 99% on R/A; jw7 23:00 BP 126 / 60; Pulse 85; Resp 18 S; Pulse Ox 99% on R/A; jw7 20:12 Body Mass Index 32.23 (96.16 kg, 172.72 cm) as6 20:12 Pain Scale: Adult as6 ED Course: 20:04 Patient arrived in ED. kl 20:04 Vernon Luo MD is Attending Physician. ammon 20:12 Arm band placed on. as6 20:13 Mimi Muhammad RN is Primary Nurse. jw7 20:15 Inserted saline lock: 20 gauge in right antecubital area, using aseptic technique. jw7 Blood collected. 20:15 Initial lab(s) drawn, by me, sent to lab. jw7 20:18 Triage completed. as6 20:30 Patient has correct armband on for positive identification. Bed in low position. Call jw7 light in reach. Side rails up X2. 20:35 Isac Cavanaugh MD is Hospitalizing Provider. ammon 21:03 XRAY Chest (1 view) In Process Unspecified. EDMS 21:46 Isac Cavanaugh MD is Hospitalizing Provider. [facility] 23:45 No provider procedures requiring assistance completed. Patient admitted, IV remains in jw7 place. 23:46 Provided Education on: need for admit. jw7 Administered Medications: 20:55 Drug: Ondansetron IVP 4 mg IVP once; over 2 minutes Route: IVP; Site: right antecubital;jw 23:48 Follow up: Response: No adverse reaction jw7 20:55 Drug: tranexamic acid 1000 mg IV at per protocol once; administer at a rate not to jw7 exceed 100 mg per min Route: IV; Rate: per protocol; Site: right antecubital; 21:21 Follow up: Response: No adverse reaction; IV Status: Completed infusion; IV Intake: jw7 100ml 20:56 Drug: NS 0.9% IV 1000 ml IV at 125 ml/hr continuous Route: IV; Rate: 125 ml/hr; Site: [facility] right antecubital; 23:49 Follow up: Response: No adverse reaction; IV Status: Infusion continued; IV Intake: jw7 375ml 08/28 06:13 Follow up: Response: No adverse reaction; IV Status: Completed infusion; IV Intake: jw7 625ml 08/27 20:56 Drug: Famotidine IVP 20 mg IVP once; dilute with 10 mL 0.9% NaCl; give over 2 minutes jw7 Route: IVP; Site: right antecubital; 23:48 Follow up: Response: No adverse reaction jw7 Medication: 23:45 VIS not applicable for this client. jw7 Intake: 21:21 IV: 100ml; Total: 100ml. jw7 23:49 IV: 375ml; Total: 475ml. jw7 08/28 06:13 IV: 625ml; Total: 1100ml. jw7 Outcome: 08/27 20:36 Decision to Hospitalize by Provider. ammon 21:32 ER care complete, transfer ordered by . ammon 21:47 Decision to Hospitalize by Provider. ammon 23:45 Admitted to ER Hold. Please see [facility] for further documentation. jw7 23:45 Condition: stable 23:45 Instructed on the need for admit, Demonstrated understanding of instructions, 08/28 11:37 Patient left the ED. ko1 Signatures: Dispatcher [employer] EDMS Stella Reno, RN Vernon Thomas MD MD cha Slawson, Ashby, RN RN as6 Mimi Muhammad RN RN jw7 Yanni Silva RN RN ko1
--- NOTE | 2023-08-27 20:37 | EDPHYS ---
Physician Documentation [facility] Name: Les Abdi Age: 88 yrs Sex: Male : 1935 Arrival Date: 08/27/2023 Time: 19:59 Bed 19 Private MD: ED Physician Vernon Luo HPI: 08/27 20:20 This 88 yrs old Male presents to ER via EMS with complaints of nose bleed. ammon 20:20 The patient presents with a nose bleed, that is apparently anterior, from both nares, ammon occurred from an unknown cause, nasal trauma. Onset: The symptoms/episode began/occurred just prior to arrival. Modifying factors: The symptoms are alleviated by nothing. the symptoms are aggravated by nothing. Associated signs and symptoms: Loss of consciousness: the patient experienced no loss of consciousness. Severity of symptoms: At their worst the symptoms were mild in the emergency department the symptoms are unchanged. The patient has experienced similar episodes in the past, several times. Historical: - Allergies: 20:12 No Known Allergies; as6 - PMHx: 20:12 prostate cancer; Hypercholesterolemia; as6 - PSHx: 20:12 Cholecystectomy; knee; hip; as6 - Immunization history:: Adult Immunizations up to date. - Social history:: Smoking status: Patient denies any tobacco usage or history of. - Family history:: not pertinent. ROS: 20:20 Constitutional: Negative for fever, chills, and weight loss, Eyes: Negative for injury, ammon pain, redness, and discharge, Neck: Negative for injury, pain, and swelling, Cardiovascular: Negative for chest pain, palpitations, and edema, Respiratory: Negative for shortness of breath, cough, wheezing, and pleuritic chest pain, Abdomen/GI: Negative for abdominal pain, nausea, vomiting, diarrhea, and constipation, Back: Negative for injury and pain, : Negative for injury, bleeding, discharge, and swelling, MS/Extremity: Negative for injury and deformity, Skin: Negative for injury, rash, and discoloration, Neuro: Negative for headache, weakness, numbness, tingling, and seizure, Psych: Negative for depression, anxiety, suicide ideation, homicidal ideation, and hallucinations, Allergy/Immunology: Negative for hives, rash, and allergies, Endocrine: Negative for neck swelling, polydipsia, polyuria, polyphagia, and marked weight changes, Hematologic/Lymphatic: Negative for swollen nodes, abnormal bleeding, and unusual bruising, 20:20 ENT: Positive for nose bleed, Exam: 20:20 Constitutional: This is a well developed, well nourished patient who is awake, alert, ammon and in no acute distress. Head/Face: Normocephalic, atraumatic. Eyes: Pupils equal round and reactive to light, extra-ocular motions intact. Lids and lashes normal. Conjunctiva and sclera are non-icteric and not injected. Cornea within normal limits. Periorbital areas with no swelling, redness, or edema. Neck: Trachea midline, no thyromegaly or masses palpated, and no cervical lymphadenopathy. Supple, full range of motion without nuchal rigidity, or vertebral point tenderness. No Meningismus. Chest/axilla: Normal chest wall appearance and motion. Nontender with no deformity. No lesions are appreciated. Cardiovascular: Regular rate and rhythm with a normal S1 and S2. No gallops, murmurs, or rubs. Normal PMI, no JVD. No pulse deficits. Respiratory: Lungs have equal breath sounds bilaterally, clear to auscultation and percussion. No rales, rhonchi or wheezes noted. No increased work of breathing, no retractions or nasal flaring. Abdomen/GI: Soft, non-tender, with normal bowel sounds. No distension or tympany. No guarding or rebound. No evidence of tenderness throughout. Back: No spinal tenderness. No costovertebral tenderness. Full range of motion. Male : Normal genitalia with no discharge or lesions. Skin: Warm, dry with normal turgor. Normal color with no rashes, no lesions, and no evidence of cellulitis. MS/ Extremity: Pulses equal, no cyanosis. Neurovascular intact. Full, normal range of motion. Neuro: Awake and alert, GCS 15, oriented to person, place, time, and situation. Cranial nerves II-XII grossly intact. Motor strength 5/5 in all extremities. Sensory grossly intact. Cerebellar exam normal. Normal gait. Psych: Awake, alert, with orientation to person, place and time. Behavior, mood, and affect are within normal limits. 20:20 ENT: Nose: Nasal mucosa: Dried blood. abrasion, is not appreciated, clotted blood, in both nares, nasal drainage, is not appreciated, a foreign body, is not appreciated, Mouth: is normal, no acute changes, 20:38 ECG was reviewed by the Attending Physician. [facility] Vital Signs: 20:12 BP 124 / 55; Pulse 81; Resp 18 S; Temp 97.4(O); Pulse Ox 99% on R/A; Weight 96.16 kg as6 (R); Height 5 ft. 8 in. (R); Pain 0/10; 21:00 BP 148 / 67; Pulse 85; Resp 18 S; Pulse Ox 99% on R/A; jw7 22:00 BP 138 / 61; Pulse 86; Resp 17 S; Pulse Ox 99% on R/A; jw7 23:00 BP 126 / 60; Pulse 85; Resp 18 S; Pulse Ox 99% on R/A; jw7 20:12 Body Mass Index 32.23 (96.16 kg, 172.72 cm) as6 20:12 Pain Scale: Adult as6 MDM: 20:04 Patient medically screened. [facility] 20:27 Differential diagnosis: spontaneous epistaxis. Data reviewed: vital signs, nurses [facility] notes, EMS record, lab test result(s), EKG, radiologic studies, plain films. Consideration of Admission/Observation Patient was admitted/placed on observation. Escalation of care including admission/observation considered. I considered the following discharge prescriptions or medication management in the emergency department Medications were administered in the Emergency Department. See MAR. Independent interpretation of the following test(s) in the Emergency Department EKG: See my EKG interpretation above. Historians other than the Patient: EMS: ems well informed. Spouse/Significant Other: . 08/27 20:09 Order name: Basic Metabolic Panel; Complete Time: 21:10 [facility] 08/27 20:09 Order name: CBC with Diff; Complete Time: 21:10 [facility] 08/27 20:09 Order name: LFT's; Complete Time: 21:10 [facility] 08/27 20:09 Order name: Magnesium; Complete Time: 21:10 [facility] 08/27 20:09 Order name: NT PRO-BNP; Complete Time: 21:10 [facility] 08/27 20:09 Order name: PT-INR; Complete Time: 21:10 [facility] 08/27 20:09 Order name: Troponin HS; Complete Time: 21:10 [facility] 08/27 20:19 Order name: Type And Screen [facility] 08/28 07:53 Order name: CBC with Automated Diff [facility] 08/28 08:27 Order name: Basic Metabolic Panel [facility] 08/28 08:27 Order name: NT PRO-BNP [facility] 08/28 08:27 Order name: Magnesium [facility] 08/27 20:09 Order name: XRAY Chest (1 view) [facility] 08/27 20:09 Order name: EKG; Complete Time: 20:10 [facility] 08/27 20:09 Order name: Cardiac monitoring; Complete Time: 20:39 [facility] 08/27 20:09 Order name: EKG - Nurse/Tech; Complete Time: 20:39 [facility] 08/27 20:09 Order name: IV Saline Lock; Complete Time: 20:39 [facility] 08/27 20:09 Order name: Labs collected and sent; Complete Time: 20:39 [facility] 08/27 20:09 Order name: O2 Per Protocol; Complete Time: 20:12 [facility] 08/27 20:09 Order name: O2 Sat Monitoring; Complete Time: 20:11 [facility] EC:38 Rate is 83 beats/min. Rhythm is regular. QRS [place] is Normal. [place] interval is normal. QRS ammon interval is normal. QT interval is normal. No Q waves. T waves are Normal. No ST changes noted. Clinical impression: NSR w/ Non-specific ST/T Changes and No evidence of ischemia. Interpreted by me. Reviewed by me. Administered Medications: 20:55 Drug: Ondansetron IVP 4 mg IVP once; over 2 minutes Route: IVP; Site: right antecubital;[facility] 23:48 Follow up: Response: No adverse reaction [facility] 20:55 Drug: tranexamic acid 1000 mg IV at per protocol once; administer at a rate not to jw7 exceed 100 mg per min Route: IV; Rate: per protocol; Site: right antecubital; 21:21 Follow up: Response: No adverse reaction; IV Status: Completed infusion; IV Intake: jw7 100ml 20:56 Drug: NS 0.9% IV 1000 ml IV at 125 ml/hr continuous Route: IV; Rate: 125 ml/hr; Site: [facility] right antecubital; 23:49 Follow up: Response: No adverse reaction; IV Status: Infusion continued; IV Intake: jw7 375ml 08/28 06:13 Follow up: Response: No adverse reaction; IV Status: Completed infusion; IV Intake: jw7 625ml 08/27 20:56 Drug: Famotidine IVP 20 mg IVP once; dilute with 10 mL 0.9% NaCl; give over 2 minutes jw7 Route: IVP; Site: right antecubital; 23:48 Follow up: Response: No adverse reaction jw7 Disposition Summary: 08/27/23 21:47 Hospitalization Ordered Notes: Hospitalization Status: Observation(08/27/23 21:47) ammon Provider: Isac Cavanaugh(08/27/23 21:47) ammon Condition: Stable(08/27/23 21:47) ammon Problem: new(08/27/23 21:47) ammon Symptoms: have improved(08/27/23 21:47) ammon Bed/Room Type: Standard(08/27/23 21:47) ammon Location: Telemetry/MedSurg (observation)(08/28/23 11:21) bd Room Assignment: 228(08/28/23 11:21) bd Diagnosis - Epistaxis(08/27/23 21:47) ammon - assisted (current) use of anticoagulants(08/27/23 21:47) ammon - Anemia, unspecified(08/27/23 21:47) ammon Forms: - Medication Reconciliation Form ammon - SBAR form ammon - Leadership Thank You Letter ammon Signatures: Dispatcher [employer] EDMS Morena Farris Corey, MD MD cha Garcia, Cindy, RN Elio Srivastava RN RN as6 Mimi Muhammad RN RN jw7 Corrections: (The following items were deleted from the chart) 21:31 20:36 Observation ammon ammon 21:31 20:36 Isac Cavanaugh ammon ammon 21:31 20:36 Telemetry/MedSurg (observation) ammon ammon 21:31 20:36 Stable ammon ammon 21:31 20:36 new ammon ammon 21:31 20:36 have improved ammon ammon 21:31 20:36 Standard ammon ammon 21:31 20:36 ammon ammon 21:31 20:36 Epistaxis ammon ammon 21:31 20:36 assisted (current) use of anticoagulants ammon ammon 21:31 21:21 Anemia, unspecified ammon ammon 21:46 21:32 [place] [facility] ammon ammon 21:46 21:32 [employer] ammon ammon 21:46 21:32 Higher level of care ammon ammon 46 21:32 Fair ammon ammon 46 21:32 new ammon ammon 46 21:32 have improved ammon ammon 21:32 Epistaxis ammon ammon 46 21:32 Coagulation defect, unspecified ammon ammon 46 21:32 Anemia, unspecified ammon ammon 22:00 21:47 Telemetry/MedSurg (observation) ammon cg 22:00 21:47 ammon cg 08/28 11:21 08/27 22:00 BR ER HOLD cg bd 08/28 11:21 08/27 22:00 ERHOLD- cg bd
[2023-08-27] MEDS ORDERED: ONDANSETRON 4 MG/2 ML VIAL ONE (20:38)
[2023-08-27] MEDS ORDERED: FAMOTIDINE 20 MG/2 ML VIAL IV ONE (20:38)
[2023-08-27] MEDS ORDERED: NA CHLORIDE 0.9% 1,000 ML ONE (20:38)
[2023-08-27] MEDS ORDERED: TRANEXAMIC ACID 1,000 MG/10 ML VIAL IV ONE (20:38)
[2023-08-27] MEDS ORDERED: NA CHLORIDE 0.9% 100 ML ONE (20:42)
[2023-08-27 20:46] LABS: Protime INR 1.22
[2023-08-27 20:52] LABS: Albumin 3.1 g/dL (3.4-5.0); Bilirubin Direct 0.1 mg/dL (0-0.2); Bilirubin Indirect, Calculated 0.2 mg/dL (0.2-0.8); Bilirubin Total 0.3 mg/dL (0.2-1.0); Magnesium 2.4 mg/dL (1.6-2.4); Protein, Total 7.9 g/dL (6.4-8.2); Troponin High Sensitivity 26.7 pg/mL (<58.9)
--- NOTE | 2023-08-27 20:53 | P.HP ---
Certification for Inpatient Patient admitted to: Observation With expected LOS: <2 Midnights Patient will require the following post-hospital care: None Practitioner: I am a practitioner with admitting privileges, knowledge of patient current condition, hospital course, and medical plan of care. Services: Services provided to patient in accordance with Admission requirements found in Title 42 Section 412.3 of the Code of Federal Regulations Patient History Date of Service: 08/27/23 Reason for admission: Epistaxis History of Present Illness: 88-year-old male with a past medical history of hyperlipidemia, prostate cancer presents to the emergency room with nosebleed. Patient presents with bilateral near epistaxis that started prior to arrival. The patient reports similar symptoms in the past. He denies dizziness, loss of consciousness, trauma. Plan to admit for epistaxis, Dr. Booker to consult for scope in the a.m. 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 Laboratory evaluation normocytic anemia 11.2, 33.0, acute kidney injury, unknown baseline BUN 29 creatinine 1.33, GFR 52, glucose 175, BNP 1193, hypoalbumin, Allergies No Known Allergies Allergy (Verified 05/04/23 05:00) Home Medications: Bicalutamide 50 mg PO DAILY 05/04/23 Calcium Carbonate [Calcium] 500 mg PO BID 05/04/23 Glucos Sul 2Kcl/MSM/Chond/C/Mn [Glucosamine Chondroitin Cap] 1 each PO DAILY 05/04/23 Multivitamin/Iron/Folic Acid [Centrum Adults Tablet] 1 each PO DAILY 05/04/23 Simvastatin 20 mg PO BEDTIME 05/04/23 Cephalexin [Keflex*] 500 mg PO TID 7 Days #21 cap 05/08/23 - Past Medical/Surgical History -: Prostate cancer -: Chronic anticoagulation -: Hyperlipidemia -: Prostate surgery -: Cholecystectomy -: Bilateral knee replacement -: Hip surgery Psychosocial/ Personal History: Patient is retired and lives at home with his - Family History Brother -: Cancer - Social History Smoking Status: Never smoker Alcohol use: No CD- Drugs: No Caffeine use: No Place of Residence: Home Review of Systems 10-point ROS is otherwise unremarkable Physical Examination - Physical Exam General: Alert, In no apparent distress, Oriented x3 HEENT: Atraumatic, Normocephalic, Other (Nare bleeding controlled with pressure dressing) Neck: Supple, 2+ carotid pulse no bruit Cardiovascular: No edema, Normal pulses, Regular rate/rhythm Capillary refill: <2 Seconds Gastrointestinal: Normal bowel sounds, Soft and benign Musculoskeletal: No clubbing, No swelling Neurological: Normal speech, Normal strength at 5/5 x4 extr - Studies Laboratory Data (last 24 hrs) 08/27/23 08/27/23 08/27/23 20:19 20:19 20:19 WBC 8.60 Hgb 11.2 L Hct 33.0 L Plt Count 185 PT 13.4 H INR 1.22 Sodium 138 Potassium 4.0 BUN 29 H Creatinine 1.33 H Glucose 175 H Magnesium 2.4 Total Bilirubin 0.3 AST 14 L ALT 16 Alkaline Phosphatase 48 Assessment and Plan - Plan Assessment plan Epistaxis Chronic anticoagulation asaprin acute kidney injury, unknown baseline Elevated BNP Normocytic anemia Hyperlipidemia History of prostate cancer DVT prophylaxis Assessment plan Epistaxis Chronic anticoagulation Dr. Booker to evaluate with scope in am N.p.o. after midnight Elevated BNP Trend BNP BNP 1193, CXR IMPRESSION: Mild COPD. acute kidney injury, unknown baseline acute kidney injury, unknown baseline BUN 29 creatinine 1.33, GFR 52 Trend kidney function Normocytic anemia normocytic anemia 11.2, 33.0 Trend H&H Hyperlipidemia History of prostate cancer Resume appropriate home meds Full code Diet n.p.o. after midnight DVT prophylaxis Discharge Plan: Home Plan to discharge in: 24 Hours - Advance Directives Does patient have a Living Will: No Does patient have a Durable POA for Healthcare: No - Code Status/Comfort Care Code Status: Full Code Physician Review: Patient Assessed, Agree with Above Assessment and Plan Critical Care: No Time Spent Managing Pts Care (In Minutes): 50
--- NOTE | 2023-08-27 21:14 | RAD REPORT ---
EXAM DESCRIPTION: RAD - Chest Single View - 08/27/2023 9:01 pm CLINICAL HISTORY: COUGH Chest pain. COMPARISON: No comparisons FINDINGS: Portable technique limits examination quality. The lungs are mildly emphysematous but grossly clear. The heart is normal in size. No displaced fract ures. IMPRESSION: Mild COPD.
[2023-08-28 01:31] VITALS: BMI 32.1
[2023-08-28] MEDS ORDERED: ACETAMINOPHEN 500 MG TAB PO PRN (01:33)
[2023-08-28 07:51] LABS: Hematocrit 32.9 % (39.6-49.0); Lymphocytes % 20.9 % (15.3-44.8); MCV 85.9 fL (80-100); MPV 7.4 fL (7.6-11.3); Platelets 175 thou/uL (152-406); RBC Red Blood Cell Count 3.83 M/uL (4.33-5.43)
[2023-08-28 08:27] LABS: Magnesium 2.3 mg/dL (1.6-2.4); Potassium 4.5 mEq/L (3.5-5.1)
--- NOTE | 2023-08-28 11:19 | EKG ---
Test Date: 2023-08-27 Test Time: 20:35:06 Roof Foreman: MEASUREMENT RESULTS: Intervals: Rate: 83 MS: 164 QRSD: 134 QT: 402 QTc: 472 [place]: P: 24 MS: 164 QRS: -28 T: -19 INTERPRETIVE STATEMENTS: Sinus rhythm with sinus arrhythmia with occasional premature ventricular complexes Nonspecific intraventricular block Cannot rule out Septal infarct, age undetermined Abnormal ECG Compared to ECG 05/04/2023 03:22:04 Ventricular premature complex(es) now present Myocardial infarct finding now present Left-axis deviation no longer present T-wave abnormality no longer present Electronically Signed On 08-28-23 11:17:59 CDT by Dawson Blanca
[2023-08-28] MEDS ORDERED: Ringers Lactate 1,000 ML IV ONE (12:06)
--- NOTE | 2023-08-28 12:26 | CON ---
Date of Consultation: 08/28/2023 Chief Complaint: Acute right nasal bleeding. History Of Present Illness: The patient is a very pleasant 88-year-old male, who has a past medical history of right nasal epistaxis, who presented to the emergency room 1 month ago for acute posterior nasal bleed. He was packed at that time and discharged home and seen in the outpatient setting. He presents yesterday evening with the same complaints. He was watching TV and abruptly had a large amount of blood coming out of the right nasal cavity and also, he was swallowing copious amounts for blood. He presented to the emergency room and was seen by Dr. Luo. At the time, he was seen. Dr. Luo could not localize the bleed, but he did stop bleeding and then, I was consulted for further evaluation. Upon arrival to his bedside, he is in no acute distress, although his blood pressure is elevated at 137/118 with pulse oximetry of 97 and heart rate of 78. He is stable and not actively bleeding. He denies dizziness or loss of consciousness, but he has had multiple episodes of nasal trauma in the past with sports injuries. He was on anticoagulants at one time, but his map maker took him off. No other ENT complaints today. Past Medical History: Hyperlipidemia, prostate cancer, and high cholesterol. Past Surgical History: Prostate surgery, cholecystectomy, bilateral knee replacement and hip surgery. Medications: Bicalutamide, calcium carbonate, multivitamin, simvastatin, and previous use of cephalexin, no longer taking. Allergies: NO KNOWN DRUG ALLERGIES. Family History: Brother positive for cancer. Social History: Denies tobacco, alcohol, or illicit drugs. Review of Systems: General: No fever, fatigue, or lethargy. Head: Denies headaches or head trauma. Eyes: Denies drainage or double/blurred vision. Ears: Denies otorrhea or otalgia, hearing loss or tenderness. Nose: Positive for right nasal cavity bleeding, which has subsided, but denies nasal congestion, rhinorrhea, or postnasal drip. Throat: Positive for some oropharyngeal streaking of blood, but negative for any blood clots, sore throat, or dysphagia. Physical Examination: Vital Signs: Stable. General: The patient is awake, alert, and oriented to person, place, and time. Head: Atraumatic, normocephalic. Eyes: PERRLA/EOMI. Nose: Bilateral nasal speculum exam was performed. The patient was somewhat anxious during the exam. He has significant bilateral inferior and middle turbinate hypertrophy, which makes it difficult to see exactly where the patient is oozing from. There was no evidence of left nasal cavity bleeding whatsoever. It appears that the culprit is the right posterior nasal cavity. Throat: After having the patient sipping on water and having him swallow, there is a very fine streak of fresh blood noted in the posterior oropharynx, but no active profuse bleeding or blood clots. Neck: Supple. Trachea midline. Laboratory Data: White blood cell count 8.6, hemoglobin 11.2. PT is 13.4, INR is 1.22. Hematocrit 33.0. Diagnoses: 1. Recurrent right nasal cavity epistaxis. 2. Moderate anxiety and elevated blood pressure. Recommendations: 1. Recommend we put the patient under general sedation with endoscopic exam of bilateral nasal cavities with direct visualization of the culprit site of bleeding and Bovie cauterization. 2. Plan is to discharge home after the procedure. 3. Keep the patient n.p.o. and Dr. Arceo was notified. PRANEETH/SUSAN Voice ID: [id number] Report ID: [id number] MYRNA
[2023-08-28] MEDS ORDERED: propofoL 200 MG/20 ML VIAL IV ONE (12:28)
[2023-08-28] MEDS ORDERED: FENTANYL CITR 100 MCG/2 ML ONE ×2 (12:28→14:00)
[2023-08-28] MEDS ORDERED: LIDOCAINE 2% MPF 5 ML VIAL ONE (12:28)
[2023-08-28] MEDS ORDERED: dexAMETHasone 10 MG/ML VIAL ONE (12:28)
[2023-08-28] MEDS ORDERED: ONDANSETRON 4 MG/2 ML VIAL ONE (12:30)
[2023-08-28] MEDS ORDERED: BACITRACIN OINTMENT 14 GM TUBE TOP ONE (12:34)
[2023-08-28] MEDS ORDERED: NA CHLORIDE 0.9% 250 ML ONE (12:35)
[2023-08-28] MEDS ORDERED: OXYMETAZOLINE HCL 0.05% 15ML NAS ONE (12:35)
[2023-08-28] MEDS ORDERED: EPINEPHRINE/PF 1 MG/ML AMP ONE (12:35)
[2023-08-28] MEDS ORDERED: LIDOCAINE HCL/EPINEPHRINE 20 ML MDV ONE (12:35)
[2023-08-28] MEDS ORDERED: EPHEDRINE SULF 50 MG/ML VIAL ONE (13:39)
[2023-08-28] MEDS ORDERED: ACETAMINOPHEN 325 MG TABLET PO PRN (14:22)
[2023-08-28 15:22] VITALS: O2SAT 96
[2023-08-28] MEDS: CEFAZOLIN 2 GM in NA CHLORIDE 0.9% 100 ML IVPB SCH (16:28)
--- NOTE | 2023-08-28 19:07 | P.PN ---
Subjective Date of Service: 08/28/23 Chief Complaint: Epistaxis Status post fall cautery and posterior nasal packing by ENT Dr. Booker. No bleeding since cautery. Physical Examination - Vital Signs Temperature: 97.0 F Blood Pressure: 137/62 Pulse: 84 Respirations: 14 Pulse Ox (%): 88 - Studies Laboratory Data (last 24 hrs) 08/27/23 08/27/23 08/27/23 20:19 20:19 20:19 WBC 8.60 Hgb 11.2 L Hct 33.0 L Plt Count 185 PT 13.4 H INR 1.22 Sodium 138 Potassium 4.0 BUN 29 H Creatinine 1.33 H Glucose 175 H Magnesium 2.4 Total Bilirubin 0.3 AST 14 L ALT 16 Alkaline Phosphatase 48 Assessment And Plan - Plan Physical Exam General: Alert, In no apparent distress, Oriented x3 HEENT: No epistaxis. Cardiovascular: No edema, Normal pulses, Regular rate/rhythm Gastrointestinal: Normal bowel sounds, Soft and benign Musculoskeletal: No clubbing, No swelling Neurological: Normal speech, Normal strength at 5/5 x4 extr Assessment plan Epistaxis Chronic anticoagulation asaprin Acute kidney injury Normocytic anemia Hyperlipidemia History of prostate cancer Assessment plan Epistaxis Chronic anticoagulation Status post cauterization. Monitor overnight for active bleeding Monitor H&H per ENT recommendation. Empiric IV cefazolin. Acute kidney injury, unknown baseline Acute kidney injury, unknown baseline BUN 29 creatinine 1.33, GFR 52 Trend kidney function Encourage oral intake. Gentle IV hydration. Normocytic anemia normocytic anemia 11.2, 33.0 Trend H&H Hyperlipidemia History of prostate cancer Continue home medications. Full code DVT prophylaxis: SCD Discharge Plan: Home
[2023-08-28] MEDS ORDERED: NA CHLORIDE 0.9% 1,000 ML IV SCH (20:00)
[2023-08-28] MEDS: Mupirocin NASAL 2 APPL/1 GM TUBE NAS SCH (21:08)
[2023-08-29] MEDS: CEFAZOLIN 2 GM in NA CHLORIDE 0.9% 100 ML IVPB SCH ×2 (01:00→09:00)
[2023-08-29 08:50] LABS: Absolute Lymphocytes (CBC) 0.9 K/uL (0.7-4.9); Hematocrit 29.9 % (39.6-49.0); Lymphocytes % 7.4 % (15.3-44.8); MCV 84.5 fL (80-100); MPV 7.7 fL (7.6-11.3); Platelets 155 thou/uL (152-406); RBC Red Blood Cell Count 3.54 M/uL (4.33-5.43)
[2023-08-29 08:56] LABS: Protime INR 1.19
[2023-08-29] MEDS: Mupirocin NASAL 2 APPL/1 GM TUBE NAS SCH (09:00)
--- NOTE | 2023-08-29 09:50 | PN ---
Date of Progress Note: 08/29/2023 Subjective: Arrived to patient's bedside and he states that he has not had any bleeding since the pr ocedure yesterday. 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 The pain is controlled with me dications and he has had no other issues overnight. 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 Diagnoses: 1.Acute bilateral posterior nasal epistaxis, status post cauterization. 2.Suspected anemia or blood coagulopathy. Recommendations: From my standpoint, patient is cleared to be discharged with the hopes of following up with a drain tiler. This was discussed with Dr. Keyes. PRANEETH/SUSAN Voice ID: [id number] Report ID: [id number]
--- NOTE | 2023-08-29 10:14 | OP ---
Date of Procedure: 08/28/2023 Surgeon: DENNIS KYLE Preoperative Diagnosis: Acute right posterior nasal epistaxis. Postoperative Diagnosis: Bilateral posterior nasal epistaxis. Procedure: Bilateral nasal endoscopy with extensive cautery and packing of bilateral posterior nasal epistaxis under general sedation. Anesthesia: General endotracheal anesthesia was administered. Afrin-soaked nasal pledgets were utilized for vasoconstriction and decongestion. Estimated Blood Loss: Approximately 10 mL. Specimens: None. Findings: Bilateral dilated vasculature noted around the sphenopalatine foramen and extending up into the area of the ethmoid bulla. Active fresh bleeding noted with no evidence of nasal trauma or inciting factors to explain the amount of bleeding. Complications: None. Disposition: Stable. The patient tolerated the procedure well. Indication For Procedure: The patient is a pleasant 88-year-old male with a history of recurrent epistaxis. He presented to our emergency room with cinthia right nasal cavity bleeding that is noticed into both nasal cavities. These were indications to bring the patient to proceed for the above-mentioned procedure. He understood, all questions were answered. Risks versus benefits and complications were explained in detail and a consent form was signed which was placed in the chart. Description Of Procedure: Patient was transferred from the preoperative holding area to the operative suite by Department of Anesthesia, placed on the operating table, supine, sedated, intubated in normal fashion. Afrin-soaked nasal pledgets were introduced into bilateral nasal cavities, in order for there to be vasoconstriction and decongestion of the intranasal cavity. The patient was then prepped and draped. The pledgets were removed, and utilizing a rigid 0-degree nasal endoscope, it was introduced bilaterally along the floor back to the level of the nasopharynx. The patient had significant right nasal septal deviation and bilateral middle turbinate hypertrophy. Once I medialized the middle turbinates, I could detect the sphenopalatine foramen and there were multiple dilated submucosal vessels. The patient was actively oozing from these areas, thus I used cautery on a setting of 20, then 25 for coagulation to stop the bleeding. This bleeding radiated to bilateral ethmoid bulla, and thus I had to cauterize these areas as well. Once hemostasis was achieved, I coated Surgicel packing with FloSeal and inserted it into bilateral nasal cavities at the sites of bleeding. A mustache dressing was placed. He tolerated the procedure well. He was transferred back to Department of Anesthesia in stable condition, where he was subsequently awakened, extubated, and transferred to the postoperative care unit in stable condition, and then back to the medical floor. The goal was to try and get him home tomorrow, and hopefully to follow up with Hematology as I suspect the bleeding disorder, possibly anemia. PRANEETH/SUSAN Voice ID: [id number] Report ID: [id number] MYRNA
[2023-08-29 10:15] VITALS: BP 124/59; TEMP 97
--- NOTE | 2023-08-29 10:21 | P.DS ---
Admission Date: 08/27/23 Discharge Date: 08/29/23 Disposition: ROUTINE DISCHARGE Discharge Condition: FAIR Reason for Admission: Epistaxis Brief History of Present Illness: 88-year-old male with a past medical history of hyperlipidemia, prostate cancer presents to the emergency room with nosebleed. Patient presented with bilateral epistaxis that started prior to arrival. The patient reported similar symptoms in the past. He denied dizziness, loss of consciousness, trauma. Dr. Booker to consulted to evaluate patient. Posterior nasal packing done and patient admitted for further management. Hospital Course: Diagnosis Epistaxis Chronic anticoagulation asaprin Acute kidney injury Normocytic anemia Hyperlipidemia History of prostate cancer Patient admitted to the medical floor and the following medical problems addressed: Epistaxis Chronic anticoagulation Seen and evaluated by ENT Dr. Booker, status post cauterization. No more epistaxis after the procedure H&H was stable. Patient was on empiric IV cefazolin. ENT suspect possible bleeding/coagulation disorder and recommended follow-up with hematology as outpatient. Patient is discharged with Augmentin and refered to see Dr. Barron as outpatient. Acute kidney injury, unknown baseline Acute kidney injury, unknown baseline BUN 29 creatinine 1.33, GFR 52 Renal function trended down with IV hydration. Normocytic anemia Hemoglobin trended down slightly but overall stable. Hyperlipidemia History of prostate cancer Continued home medications. Vital Signs/Physical Exam: Temp Pulse Resp BP Pulse Ox 97.8 F 74 16 101/61 92 08/29/23 05:46 08/29/23 05:46 08/29/23 05:46 08/29/23 05:46 08/29/23 05:46 General: Alert, In no apparent distress, Oriented x3 HEENT: Mucous membr. moist/pink Neck: Supple, JVD not distended Respiratory: Clear to auscultation bilaterally, Normal air movement Cardiovascular: Regular rate/rhythm, Normal S1 S2 Gastrointestinal: Normal bowel sounds, Soft and benign, Non-distended, No tenderness Musculoskeletal: No swelling Integumentary: No rashes, No cyanosis Neurological: Normal speech, Normal strength at 5/5 x4 extr Laboratory Data at Discharge: WBC 12.60 thou/uL (4.3-10.9) H 08/29/23 08:33 Hgb 10.3 g/dL (13.6-17.9) L 08/29/23 08:33 Hct 29.9 % (39.6-49.0) L 08/29/23 08:33 Plt Count 155 thou/uL (152-406) 08/29/23 08:33 PT 13.1 SECONDS (9.5-12.5) H 08/29/23 08:33 INR 1.19 08/29/23 08:33 APTT 27.6 SECONDS (24.3-36.9) 08/29/23 08:33 Sodium 140 mEq/L (136-145) 08/28/23 07:35 Potassium 4.5 mEq/L (3.5-5.1) 08/28/23 07:35 BUN 27 mg/dL (7-18) H 08/28/23 07:35 Creatinine 1.30 mg/dL (0.70-1.30) 08/28/23 07:35 Glucose 112 mg/dL (74-106) H 08/28/23 07:35 Magnesium 2.3 mg/dL (1.6-2.4) 08/28/23 07:35 Total Bilirubin 0.3 mg/dL (0.2-1.0) 08/27/23 20:19 AST 14 U/L (15-37) L 08/27/23 20:19 ALT 16 U/L (16-61) 08/27/23 20:19 Alkaline Phosphatase 48 U/L (45-117) 08/27/23 20:19 Home Medications: Bicalutamide 50 mg PO DAILY 05/04/23 Calcium Carbonate [Calcium] 500 mg PO BID 05/04/23 Glucos Sul 2Kcl/MSM/Chond/C/Mn [Glucosamine Chondroitin Cap] 1 each PO DAILY 05/04/23 Multivitamin/Iron/Folic Acid [Centrum Adults Tablet] 1 each PO DAILY 05/04/23 Simvastatin 20 mg PO BEDTIME 05/04/23 Amox/Clavulanate [Augmentin 875-125 Tab] 1 each PO BID #10 tab 08/29/23 Mupirocin Calcium [Bactroban Nasal*] 1 appl YANI BID #1 tube 08/29/23 New Medications: Amox/Clavulanate [Augmentin 875-125 Tab] 1 each PO BID #10 tab Mupirocin Calcium [Bactroban Nasal*] 1 appl YANI BID #1 tube Diet: AHA Activity: Ad jessica Followup: Marissa Tsang MD [ACTIVE - CAN ADMIT] - 1-2 Weeks Romi Walters MD [Primary Care Provider] - Time spent managing pt's care (in minutes): 27
== END 2023-08-29 12:05 | disposition home or self-care (01) ==
LOC: ER 19:59 → ERHOLD 21:02 → 2ND 08-28 11:26
PROVIDERS: ADMIT Internal Medicine; ATTEND Internal Medicine
PROC: 09JK8ZZ Inspection of Nasal Mucosa and Soft Tissue, Via Natural or Artificial Opening Endoscopic (ICD-10-PCS; principal; 2023-08-28 12:00)
DX: R04.0 Epistaxis (principal); E78.5 Hyperlipidemia, unspecified; N17.9 Acute kidney failure, unspecified; D64.9 Anemia, unspecified; Z85.46 Personal history of malignant neoplasm of prostate; Z79.01 Long term (current) use of anticoagulants; E78.00 Pure hypercholesterolemia, unspecified
CPT/HCPCS: 96365; 96361; 93005; 85025 ×3; 80048 ×2; 36415 ×2; 86900; 83735 ×2; 86850; 85610 ×2; 86901; 80076; 85730; 84484; 83880 ×2; 71045; 96375; 99285; 31238; J2704; J2001; J3010 ×2; J1100; J2405 ×2; J7120; J7050; J7030 ×2; J0690 ×2; G0378; J0171

== ENCOUNTER → 2024-01-21 | Emergency (ER) | payer OTHER ==
[~2024-01-21] MED LIST: PHENYLEPHRINE 0.5% NOSE 15ML NAS ONE
--- OUTSIDE RECORDS SUMMARY | 2024-01-21 03:11 | XMS REPORT | Continuity of Care Document ---
Author Name Unknown Address [address] [facility] [address] [place] [address] [facility] [address] [place] [address] Care Team Providers Care Strategic Marketing Associate Name Role Phone Romi Walters Attending Clinician Unavailable Problems Condition Name Condition Details Condition Category Status Onset Date Resolution Date Last Treatment Date Treating Clinician Comments Source [id number] Stage 3a chronic kidney disease (CKD) Problem [facility] [id number] Mixed hyperlipid emia Problem [facility] [id number] Prostate cancer Problem [facility] Allergies, Adverse Reactions, Alerts Allergy Name Allergy Type Status Severity Reaction(s) Onset Date Inactive Date Treating Clinician Comments Source morphine morphine Active dizziness Com mon [facility] Social History Social Habit Start Date Stop Date Quantity Comments Source History of Tobacco Use [facility] Sex Assigned At [facility] Smoking Status Start Date Stop Date Source Former Smoker 2023-08-17 00:00:00 2023-08-17 00:00:00 [facility] Medications Ordered Medication Name Filled Medication Name Start Date Stop Date Current Medication? Ordering Clinician Indication Dosage Frequency Signature (SIG) Comments Components Source Simvastatin 20 MG Simvastatin 20 MG No 1{table t_in_th e_eveni ng} QD Simvastati n 20 MG Calcium 500 MG Calcium 500 MG No 1{table t_with_ meals} BID Calcium 500 MG Bicalutamid e 50 MG Bicalutamid e 50 MG No 1{table t} QD Bicalutami de 50 MG Iron (Ferrous Sulfate) 75 (15 Fe) MG/ML Iron (Ferrous Sulfate) 75 (15 Fe) MG/ML No Iron (Ferrous Sulfate) 75 (15 Fe) MG/ML Simvastatin 20 MG Simvastatin 20 MG No 1{table t_in e_eveni ng} QD Simvastati n 20 MG Calcium 500 MG Calcium 500 MG No 1{table t_with_ meals} BID Calcium 500 MG Bicalutamid e 50 MG Bicalutamid e 50 MG No 1{table t} QD Bicalutami de 50 MG Iron (Ferrous Sulfate) 75 (15 Fe) MG/ML Iron (Ferrous Sulfate) 75 (15 Fe) MG/ML No Iron (Ferrous Sulfate) 75 (15 Fe) MG/ML Simvastatin 20 MG Simvastatin 20 MG No 1{table t_in e_eveni ng} QD Simvastati n 20 MG Calcium 500 MG Calcium 500 MG No 1{table t_with_ meals} BID Calcium 500 MG Bicalutamid e 50 MG Bicalutamid e 50 MG No 1{table t} QD Bicalutami de 50 MG Iron (Ferrous Sulfate) 75 (15 Fe) MG/ML Iron (Ferrous Sulfate) 75 (15 Fe) MG/ML No Iron (Ferrous Sulfate) 75 (15 Fe) MG/ML Immunizations Ordered Immunization Name Filled Immunization Name Date Status Comments Source FLUZONE HIGH DOSE OVER 65 FLUZONE HIGH DOSE OVER 65 Unknown Completed [facility] FLUZONE HIGH DOSE OVER 65 FLUZONE HIGH DOSE OVER 65 Unknown Completed [facility] FLUZONE HIGH DOSE OVER 65 FLUZONE HIGH DOSE OVER 65 Unknown Completed [facility] Vital Signs Vital Name Observation Time Observation Value Comments S ource height 2023-08-17 14:20:00 68 [in_i] Commo n [facility] weight 2023-08-17 14:20:00 219 [lb_av] Comm on [facility] temperature 2023-08-17 14:20:00 97.3 [degF] Com mon [facility] bmi 2023-08-17 14:20:00 33.3 kg/m2 Commo n [facility] oximetry 2023-08-17 14:20:00 96 % Commo n [facility] respiratory rate 2023-08-17 14:20:00 16 /min Common [facility] blood pressure systolic 2023-08-17 14:20:00 126 mm[Hg[facility] pressure diastolic 2023-08-17 14:20:00 72 mm[Hg] [facility] height 2023-05-09 14:40:00 68 [in_i] Commo n [facility] weight 2023-05-09 14:40:00 224 [lb_av] Comm on [facility] temperature 2023-05-09 14:40:00 97.6 [degF] Com [facility] bmi 2023-05-09 14:40:00 34.06 kg/m2 Comm on [facility] oximetry 2023-05-09 14:40:00 97 % Commo n [facility] respiratory rate 2023-05-09 14:40:00 16 /min Common [facility] blood pressure systolic 2023-05-09 14:40:00 122 mm[Hg] Common [facility] blood pressure diastolic 2023-05-09 14:40:00 70 mm[Hg] [facility] height 2023-05-09 15:00:00 68 [in_i] Commo n [facility] weight 2023-05-09 15:00:00 224 [lb_av] Comm on [facility] temperature 2023-05-09 15:00:00 97.6 [degF] Com [facility] bmi 2023-05-09 15:00:00 34.06 kg/m2 Comm on [facility] oximetry 2023-05-09 15:00:00 97 % Commo n [facility] respiratory rate 2023-05-09 15:00:00 16 /min [facility] blood pressure systolic 2023-05-09 15:00:00 122 mm[Hg] [facility] blood pressure diastolic 2023-05-09 15:00:00 70 mm[Hg] [facility] Encounters Start Date/Time End Date/Time Encounter Type Admission Type Attending Clinicians Care Facility Care Department Encounter ID Source 2023-05-22 08:27:[address] [facility] [id number] [facility] 2023-05-09 14:50:[address] [facility] [id number] [facility] 2023-08-17 00:00:00 2023-08-17 00:00:00 OFFICE VISIT [facility] [id number] [facility] 2023-05-09 00:00:00 2023-05-09 00:00:00 SUB ANNUAL [facility] [id number] [facility] 2023-05-09 00:00:00 2023-05-09 00:00:00 OFFICE VISIT ESTAB PT LEVEL [facility] [id number] [facility] Results Test Description Test Time Test Comments Results Result Co mments Source [id number] 00:00:00* Test Item Value Reference Range Interpretation Comme [facility] FERRITIN (test code = 33082-0) 101 NG/ML See_Comment [Automated [employer]] The system which generated this result transmitted reference range: 30-400 NG/ML. The reference range was not used to interpret this result as normal/abnormal. HEMOGLOBIN [id number] 00:00:00* Test Item Value Reference Range Interpretation Comme nts HEMOGLOBIN A1c (test code = 4548-4) 6.2 % See_Comment H [Automated [employer]] The system which generated this result transmitted reference range: 4.2-5.6 %. The reference range was not used to interpret this result as normal/abnormal. LIPID PANEL WITH REFLEX DIRECT [id number] 00:00:00* Test Item Value Reference Range Interpretation Comme nts CALC LDL CHOL (test code = 86940-3) 95 MG/DL See_Comment [Automated messa ge] The system which generated this result transmitted reference range: <100 MG/DL. The reference range was not used to interpret this result as normal/abnormal. CHOLESTEROL (test code = 2093-3) 159 MG/DL See_Comment [Automated messa ge] The system which generated this result transmitted reference range: <200 MG/DL. The reference range was not used to interpret this result as normal/abnormal. HDL CHOLESTEROL (test code = 2085-9) 42 MG/DL See_Comment [Automated messa ge] The system which generated this result transmitted reference range: >39 MG/DL. The reference range was not used to interpret this result as normal/abnormal. RISK RATIO LDL/HDL (test code = 23329-2) 2.26 RATIO See_Comment [Automated message] The system which generated this result transmitted reference range: <3.55 RATIO. The reference range was not used to interpret this result as normal/abnormal. TRIGLYCERIDES (test code = 2571-8) 123 MG/DL See_Comment [Automated messa ge] The system which generated this result transmitted reference range: <150 MG/DL. The reference range was not used to interpret this result as normal/abnormal. COMPREHENSIVE METABOLIC [id number] 00:00:00* Test Item Value Reference Range Interpretation Comme nts ALBUMIN (test code = 1751-7) 4.1 G/DL See_Comment [Automated messa ge] The system which generated this result transmitted reference range: 3.5-5.2 G/DL. The reference range was not used to interpret this result as normal/abnormal. ALKALINE PHOSPHATASE (test code = 6768-6) 52 U/L See_Comment [Automated message] The system which generated this result transmitted reference range: 40-125 U/L. The reference range was not used to interpret this result as normal/abnormal. BILIRUBIN, TOTAL (test code = 1975-2) 0.3 MG/DL See_Comment [Automated message] The system which generated this result transmitted reference range: <=1.2 MG/DL. The reference range was not used to interpret this result as normal/abnormal. BUN (test code = 3094-0) 23 MG/DL See_Comment [Automated messa ge] The system which generated this result transmitted reference range: 8-23 MG/DL. The reference range was not used to interpret this result as normal/abnormal. CALCIUM (test code = 80698-1) 9.0 MG/DL See_Comment [Automated messa ge] The system which generated this result transmitted reference range: 8.5-10.5 MG/DL. The reference range was not used to interpret this result as normal/abnormal. CALC A/G RATIO (test code = 1759-0) 1.2 RATIO See_Comment [Automated messa ge] The system which generated this result transmitted reference range: 1.0-2.6 RATIO. The reference range was not used to interpret this result as normal/abnormal. CALC BUN/CREAT (test code = 3097-3) 18 RATIO See_Comment [Automated messa ge] The system which generated this result transmitted reference range: 6-28 RATIO. The reference range was not used to interpret this result as normal/abnormal. CALC GLOBULIN (test code = 08521-5) 3.4 G/DL See_Comment [Automated messa ge] The system which generated this result transmitted reference range: 1.9-3.7 G/DL. The reference range was not used to interpret this result as normal/abnormal. CARBON DIOXIDE (test code = 1963-8) 27 MEQ/L See_Comment [Automated messa ge] The system which generated this result transmitted reference range: 19-31 MEQ/L. The reference range was not used to interpret this result as normal/abnormal. CHLORIDE (test code = 2075-0) 104 MEQ/L See_Comment [Automated messa ge] The system which generated this result transmitted reference range: 95-107 MEQ/L. The reference range was not used to interpret this result as normal/abnormal. CREATININE (test code = 2160-0) 1.30 MG/DL See_Comment [Automated messa ge] The system which generated this result transmitted reference range: 0.80-1.40 MG/DL. The reference range was not used to interpret this result as normal/abnormal. eGFR (2020 CKD-EPI) (test code = 66987-4) 53 ML/MIN/1.73 See_Comment L [Automated messa ge] The system which generated this result transmitted reference range: >60 ML/MIN/1.73. The reference range was not used to interpret this result as normal/abnormal. GLUCOSE (test code = 1558-6) 111 MG/DL See_Comment H [Automated messa ge] The system which generated this result transmitted reference range: 70-99 MG/DL. The reference range was not used to interpret this result as normal/abnormal. POTASSIUM (test code = 2823-3) 4.3 MEQ/L See_Comment [Automated messa ge] The system which generated this result transmitted reference range: 3.5-5.4 MEQ/L. The reference range was not used to interpret this result as normal/abnormal. PROTEIN, TOTAL (test code = 2885-2) 7.5 G/DL See_Comment [Automated messa ge] The system which generated this result transmitted reference range: 6.1-8.3 G/DL. The reference range was not used to interpret this result as normal/abnormal. AST (test code = 1920-8) 17 U/L See_Comment [Automated messa ge] The system which generated this result transmitted reference range: 9-50 U/L. The reference range was not used to interpret this result as normal/abnormal. ALT (test code = 1742-6) 10 U/L See_Comment [Automated messa ge] The system which generated this result transmitted reference range: 5-50 U/L. The reference range was not used to interpret this result as normal/abnormal. SODIUM (test code = 2951-2) 140 MEQ/L See_Comment [Automated messa ge] The system which generated this result transmitted reference range: 133-146 MEQ/L. The reference range was not used to interpret this result as normal/abnormal.
--- NOTE | 2024-01-21 03:56 | ER ---
Nurse's Notes [facility] Karla Name: Les Abdi Age: 88 yrs Sex: Male : 1935 Arrival Date: 01/21/2024 Time: 03:09 Bed DX3 Private MD: Diagnosis: Epistaxis Presentation: 01/20 03:15 Chief complaint: EMS states: Nose bleed that started an hour CARDIOLOGIST but has started. vc1 Coronavirus screen: At this time, the client does not indicate any symptoms associated with coronavirus-19. Ebola Screen: Patient negative for fever greater than or equal to 101.5 degrees Fahrenheit, and additional compatible Ebola Virus Disease symptoms Patient denies exposure to infectious person. Patient denies travel to an Ebola-affected area in the 21 days before illness onset. No symptoms or risks identified at this time. Initial Sepsis Screen: Does the patient meet any 2 criteria? No. Patient's initial sepsis screen is negative. Does the patient have a suspected source of infection? No. Patient's initial sepsis screen is negative. Risk Assessment: Do you want to hurt yourself or someone else? Patient reports no desire to harm self or others. Onset of symptoms was January 21, 2024 at 02:00. 03:15 Method Of Arrival: EMS: [facility] vc1 03:15 Acuity: RAIN 4 vc1 Triage Assessment: 03:21 General: Appears in no apparent distress. comfortable, Behavior is calm, cooperative, vc1 appropriate for age. Pain: Denies pain. EENT: Nares dried blood noted. Reports nosed bleed that has resolved. 03:22 Neuro: Level of Consciousness is awake, alert, obeys commands, Oriented to person, vc1 place, time, situation, Appropriate for age. Cardiovascular: No deficits noted. Heart tones S1 S2. Respiratory: Airway is patent Respiratory effort is even, unlabored, Respiratory pattern is regular, symmetrical. GI: No deficits noted. No signs and/or symptoms were reported involving the gastrointestinal system. : No deficits noted. No signs and/or symptoms were reported regarding the genitourinary system. Derm: dried blood noted to fingers and nares. Musculoskeletal: No deficits noted. No signs and/or symptoms reported regarding the musculoskeletal system. Historical: - Allergies: 03:17 No Known Allergies; vc1 - Home Meds: 03:17 Eliquis oral [Active]; vc1 - PMHx: 03:17 Hypercholesterolemia; Prostate Cancer; vc1 - PSHx: 03:17 Cholecystectomy; knee; hip; vc1 - Immunization history:: Client reports receiving the 2nd dose of the Covid vaccine, Flu vaccine is up to date. - Social history:: Smoking status: Patient denies any tobacco usage or history of. Screenin:20 [facility] ED Fall Risk Assessment (Adult) History of falling in the last 3 months, vc1 including since admission No falls in past 3 months (0 pts) Confusion or Disorientation No (0 pts) Intoxicated or Sedated No (0 pts) Impaired Gait No (0 pts) Mobility Assist Device Used No (0 pt) Altered Elimination No (0 pt) Score/Fall Risk Level 0 - 2 = Low Risk Oriented to surroundings, Maintained a safe environment, Educated pt \T\ family on fall prevention, incl call for assistance when getting out of bed. Abuse screen: Denies threats or abuse. Nutritional screening: No deficits noted. Tuberculosis screening: No symptoms or risk factors identified. Assessment: 03:23 General: See triage assessment. vc1 03:54 Reassessment: Patient appears in no apparent distress at this time. No changes from km8 previously documented assessment. Patient and/or family updated on plan of care and expected duration. Pain level reassessed. Patient is alert, oriented x 3, equal unlabored respirations, skin warm/dry/pink. Vital Signs: 03:15 BP 119 / 66; Pulse 63; Resp 14; Temp 97.4; Pulse Ox 99% ; Weight 96 kg; Height 5 ft. 8 vc1 in. ; Pain 0/10; 03:15 Body Mass Index 32.18 (96.00 kg, 172.72 cm) vc1 03:15 Pain Scale: Adult vc1 ED Course: 03:10 Patient arrived in ED. rv1 03:12 Marbin Roth DO is Attending Physician. ms3 03:12 Claudia Booker MD is Referral Physician. ms3 03:17 Triage completed. vc1 03:20 Arm band placed on right wrist. vc1 03:21 Patient has correct armband on for positive identification. Bed in low position. Call vc1 light in reach. Pulse ox on. NIBP on. 03:34 No provider procedures requiring assistance completed. Patient did not have IV access vc1 during this emergency room visit. 03:35 Provided Education on: use nasal clamp if bleeding resumes. vc1 04:35 Claudia Booker MD is Referral Physician. ms3 Administered Medications: 04:00 Drug: Minh-Synephrine Intranasal Sulphur 0.5 % 1 sprays Intranasal once Route: Intranasal; vc1 Site: both nares; Medication: 03:21 VIS not applicable for this client. vc1 Outcome: 03:12 Discharge ordered by . ms3 03:34 Discharged to home ambulatory, waiting on vc1 03:34 Condition: good 03:34 Discharge instructions given to patient, Instructed on discharge instructions, follow up and referral plans. Demonstrated understanding of instructions, follow-up care, 03:55 Patient left the ED. km8 04:35 Discharge ordered by . ms3 04:38 Patient left the ED. vc1 Signatures: Marbin Roth, DO ms3 Sosa Valentine RN RN vc1 Teena Batres rv1 Alana Mariscal RN RN km8
--- NOTE | 2024-01-21 03:56 | EDPHYS ---
Physician Documentation [facility] Name: Les Abdi Age: 88 yrs Sex: Male : 1935 Arrival Date: 01/21/2024 Time: 03:09 Bed DX3 Private MD: ED Physician Marbin Roth HPI: 01/20 03:17 This 88 yrs old Male presents to ER via Unassigned with complaints of nosebleed. [facility] 03:17 88-year-old male with past medical history of congestive heart failure presents to the [facility] emergency department via [facility] for nosebleed that resolved prior to EMS arrival. EMS states it was not much blood found on scene. Patient is currently on Eliquis. Patient states he has had intermittent nosebleeds over the last 1 hour. Patient states his nose quit bleeding prior to EMS arrival after applying pressure. Historical: - Allergies: 03:17 No Known Allergies; vc1 - Home Meds: 03:17 Eliquis oral [Active]; vc1 - PMHx: 03:17 Hypercholesterolemia; Prostate Cancer; vc1 - PSHx: 03:17 Cholecystectomy; knee; hip; vc1 - Immunization history:: Client reports receiving the 2nd dose of the Covid vaccine, Flu vaccine is up to date. - Social history:: Smoking status: Patient denies any tobacco usage or history of. ROS: 03:22 Constitutional: Negative for fever, and chills. Neck: Negative for injury, pain, and ms3 swelling, Cardiovascular: Negative for chest pain, and palpitations. Respiratory: Negative for shortness of breath, cough, wheezing, and pleuritic chest pain, Abdomen/GI: Negative for abdominal pain, nausea, vomiting, diarrhea, and constipation, 03:22 ENT: Positive for nose bleed, Exam: 03:22 Constitutional: This is a well developed, well nourished patient who is awake, alert, ms3 and in no acute distress. 03:22 Cardiovascular: Regular rate and rhythm with a normal S1 and S2. No gallops, murmurs, or rubs. Normal PMI, no JVD. No pulse deficits. Respiratory: Lungs have equal breath sounds bilaterally, clear to auscultation and percussion. No rales, rhonchi or wheezes noted. No increased work of breathing, no retractions or nasal flaring. Abdomen/GI: Soft, non-tender, with normal bowel sounds. No distension or tympany. No guarding or rebound. No evidence of tenderness throughout. 03:22 ENT: Nose: bleeding, is not appreciated, clotted blood, in right nare, nasal drainage, is not appreciated, Vital Signs: 03:15 BP 119 / 66; Pulse 63; Resp 14; Temp 97.4; Pulse Ox 99% ; Weight 96 kg; Height 5 ft. 8 vc1 in. ; Pain 0/10; 03:15 Body Mass Index 32.18 (96.00 kg, 172.72 cm) vc1 03:15 Pain Scale: Adult vc1 Procedures: 04:36 Epistaxis treatment: A small amount of bleeding noted from Treated using Oxymetazoline ms3 sprays, direct pressure, Bleeding stopped. MDM: 03:12 Patient medically screened. ms3 03:22 Differential diagnosis: spontaneous epistaxis. Data reviewed: vital signs, nurses ms3 notes, and as a result, I will discharge patient. Historians other than the Patient: EMS: [facility]. Counseling: I had a detailed discussion with the patient and/or guardian regarding the historical points, exam findings, and any diagnostic results supporting the discharge/admit diagnosis, the need for outpatient follow up, to return to the emergency department if symptoms worsen or persist or if there are any questions or concerns that arise at home. Special discussion: I discussed with the patient/guardian in detail that at this point there is no indication for admission to the hospital. It is understood, however, that if the symptoms persist or worsen the patient needs to return immediately for re-evaluation. ED course: Discussed physical exam findings with patient. Patient to follow-up with Dr. Booker in 2 to 3 days for reevaluation. Patient understands and agrees with plan. All questions were answered. Return precautions discussed include worsening symptoms, or any other concerns. 04:05 ED course: After discharge patient with epistaxis on the way to his car. Neosynepherine ms3 and anterior pressure applied. Administered Medications: 04:00 Drug: Minh-Synephrine Intranasal Lengby 0.5 % 1 sprays Intranasal once Route: Intranasal; vc1 Site: both nares; Disposition Summary: 01/21/24 04:35 Discharge Ordered Notes: Location: Home(01/21/24 04:35) ms3 Condition: Stable(01/21/24 04:35) ms3 Diagnosis - Epistaxis(01/21/24 04:35) ms3 Followup: ms3 - With: Claudia Booker MD - When: 1 - 2 days - Reason: Recheck today's complaints Discharge Instructions: - Discharge Summary Sheet ms3 - Nosebleed, Adult ms3 Forms: - Medication Reconciliation Form ms3 - Thank You Letter ms3 - Antibiotic Education ms3 - Prescription Opioid Use ms3 - Patient Portal Instructions ms3 - Leadership Thank You Letter ms3 Signatures: Marbin Roth DO DO ms3 Sosa Valentine RN RN vc1 Corrections: (The following items were deleted from the chart) 04:13 03:12 Home ms3 ms3 04:13 03:12 Stable ms3 ms3 04:13 03:12 Epistaxis ms3 ms3 04:36 04:05 Epistaxis treatment: A small amount of bleeding noted from Treated using ms3 Oxymetazoline sprays, direct pressure, ms3
[2024-01-21 04:12] VITALS: BP 119/66; TEMP 97.4; O2SAT 99
== END ==
LOC: ER 03:09
DX: R04.0 Epistaxis (principal); Z79.01 Long term (current) use of anticoagulants
CPT/HCPCS: 30901; 99284

== ENCOUNTER 2024-06-24 12:06 | Emergency (ER) | payer OTHER ==
--- NOTE | 2024-06-24 12:47 | ER ---
Nurse's Notes [facility] Name: Les Abdi Age: 89 yrs Sex: Male : 1935 Arrival Date: 06/24/2024 Time: 12:06 Bed IW1 Private MD: Diagnosis: Coello catheter problem, Coello catheter care Presentation: 06/24 12:16 Chief complaint: Patient states: Pt states indwelling coello stat-lock broke yesterday. dd2 Coronavirus screen: At this time, the client does not indicate any symptoms associated with coronavirus-19. Ebola Screen: No symptoms or risks identified at this time. Initial Sepsis Screen: Does the patient meet any 2 criteria? No. Patient's initial sepsis screen is negative. Does the patient have a suspected source of infection? No. Patient's initial sepsis screen is negative. Risk Assessment: Do you want to hurt yourself or someone else?. Onset of symptoms was June 23, 2024. 12:16 Method Of Arrival: Ambulatory dd2 12:16 Acuity: RAIN 4 dd2 Triage Assessment: 12:20 General: Appears in no apparent distress. Behavior is calm, cooperative. Pain: Denies dd2 pain. Historical: - Allergies: 12:20 No Known Allergies; dd2 - PMHx: 12:20 CHF; Hypercholesterolemia; Prostate Cancer; dd2 - PSHx: 12:20 Cholecystectomy; hip; knee; prostatectomy (knee); dd2 - Immunization history:: Adult Immunizations up to date. - Infectious Disease History:: Denies. - Social history:: Smoking status: Patient/guardian denies using tobacco, but has a distant history of tobacco abuse. Screenin:38 [facility] ED Fall Risk Assessment (Adult) History of falling in the last 3 months, dd2 including since admission No falls in past 3 months (0 pts) Confusion or Disorientation No (0 pts) Intoxicated or Sedated No (0 pts) Impaired Gait No (0 pts) Mobility Assist Device Used No (0 pt) Altered Elimination No (0 pt) Score/Fall Risk Level 0 - 2 = Low Risk Oriented to surroundings, Maintained a safe environment, Hourly rounding (assess needs \T\ fall precautionary measures) done. Abuse screen: Denies threats or abuse. Nutritional screening: No deficits noted. Tuberculosis screening: No symptoms or risk factors identified. Assessment: 12:38 Neuro: No deficits noted. Cardiovascular: No deficits noted. Respiratory: No deficits dd2 noted. GI: No deficits noted. : No deficits noted. EENT: No deficits noted. Derm: No deficits noted. Musculoskeletal: No deficits noted. Vital Signs: 12:16 BP 97 / 56; Pulse 71; Resp 15; Temp 97.8; Pulse Ox 96% ; Weight 96.62 kg; Height 5 ft. dd2 8 in. ; 12:16 Body Mass Index 32.39 (96.62 kg, 172.72 cm) dd2 ED Course: 12:09 Patient arrived in ED. mg5 12:20 Triage completed. dd2 12:20 Arm band placed on right wrist. Patient notified of wait time. dd2 12:29 Christopher Song MD is Attending Physician. sp3 12:38 Patient has correct armband on for positive identification. Provided Education on: dd2 coello . 12:38 No provider procedures requiring assistance completed. Patient did not have IV access dd2 during this emergency room visit. 12:50 YISSEL STOUT, RN is Primary Nurse. dd2 Administered Medications: No medications were administered Medication: 12:38 VIS not applicable for this client. dd2 Outcome: 12:46 Discharge ordered by . sp3 12:50 Discharged to home ambulatory, dd2 12:50 Condition: stable 12:50 Discharge instructions given to patient, Instructed on discharge instructions, follow up and referral plans. Demonstrated understanding of instructions, follow-up care, 12:51 Patient left the ED. dd2 Signatures: Christopher Song MD MD [address] [id number] YISSEL STOUT, RN RN dd2 Corrections: (The following items were deleted from the chart) 12:28 12:16 Chief complaint: Patient states: Pt states indwelling coello leg strap broke and dd2 needs it replaced. dd2
--- NOTE | 2024-06-24 12:47 | EDPHYS ---
Physician Documentation [facility] Name: Les Abdi Age: 89 yrs Sex: Male : 1935 Arrival Date: 06/24/2024 Time: 12:06 Bed IW1 Private MD: ED Physician Christopher Song HPI: 06/24 12:44 This 89 yrs old Male presents to ER via Ambulatory with complaints of Problem With sp3 Urinary Catheter. 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 Current catheter was placed June 12 due to persistent episode of hematuria. He denies any symptoms currently including abdominal pain, fever, back pain, or any other medical complications of the Frey catheter itself. He states only reason he came in was a mechanical issue with the Frey bag itself. Review of systems otherwise negative.. Historical: - Allergies: 12:20 No Known Allergies; dd2 - PMHx: 12:20 CHF; Hypercholesterolemia; Prostate Cancer; dd2 - PSHx: 12:20 Cholecystectomy; hip; knee; prostatectomy (knee); dd2 - Immunization history:: Adult Immunizations up to date. - Infectious Disease History:: Denies. - Social history:: Smoking status: Patient/guardian denies using tobacco, but has a distant history of tobacco abuse. ROS: 12:44 Constitutional: Negative for fever, chills, and weight loss, Eyes: Negative for injury, sp3 pain, redness, and discharge, ENT: Negative for injury, pain, and discharge, Neck: Negative for injury, pain, and swelling, Cardiovascular: Negative for chest pain, palpitations, and edema, Respiratory: Negative for shortness of breath, cough, wheezing, and pleuritic chest pain, Abdomen/GI: Negative for abdominal pain, nausea, vomiting, diarrhea, and constipation, Back: Negative for injury and pain, MS/Extremity: Negative for injury and deformity, Skin: Negative for injury, rash, and discoloration, Neuro: Negative for headache, weakness, numbness, tingling, and seizure, Psych: Negative for depression, anxiety, suicide ideation, homicidal ideation, and hallucinations, Allergy/Immunology: Negative for hives, rash, and allergies, Endocrine: Negative for neck swelling, polydipsia, polyuria, polyphagia, and marked weight changes, 12:44 All other systems are negative, Exam: 12:45 Constitutional: This is a well developed, well nourished patient who is awake, alert, sp3 and in no acute distress. Head/Face: Normocephalic, atraumatic. Eyes: Pupils equal round and reactive to light, extra-ocular motions intact. Lids and lashes normal. Conjunctiva and sclera are non-icteric and not injected. Cornea within normal limits. Periorbital areas with no swelling, redness, or edema. Neck: Trachea midline, no thyromegaly or masses palpated, and no cervical lymphadenopathy. Supple, full range of motion without nuchal rigidity, or vertebral point tenderness. No Meningismus. Chest/axilla: Normal chest wall appearance and motion. Nontender with no deformity. No lesions are appreciated. Cardiovascular: Regular rate and rhythm with a normal S1 and S2. No gallops, murmurs, or rubs. Normal PMI, no JVD. No pulse deficits. Respiratory: Lungs have equal breath sounds bilaterally, clear to auscultation and percussion. No rales, rhonchi or wheezes noted. No increased work of breathing, no retractions or nasal flaring. Abdomen/GI: Soft, non-tender, with normal bowel sounds. No distension or tympany. No guarding or rebound. No evidence of tenderness throughout. Back: No spinal tenderness. No costovertebral tenderness. Full range of motion. Male : Normal genitalia with no discharge or lesions. Vital Signs: 12:16 BP 97 / 56; Pulse 71; Resp 15; Temp 97.8; Pulse Ox 96% ; Weight 96.62 kg; Height 5 ft. dd2 8 in. ; 12:16 Body Mass Index 32.39 (96.62 kg, 172.72 cm) dd2 MDM: 12:43 Patient medically screened. sp3 12:45 Data reviewed: vital signs, nurses notes. ED course: Patient received new Frey sp3 catheter bag with no change in Frey. No medical diagnostic or further workup indicated. We will safely discharge patient home with continued follow-up at the [facility].. Administered Medications: No medications were administered Disposition Summary: 06/24/24 12:46 Discharge Ordered Notes: Location: Home sp3 Condition: Stable sp3 Diagnosis - Frey catheter problem, Frey catheter care sp3 Followup: sp3 - With: Private Physician - When: Upon discharge from the Emergency Department - Reason: Continuance of care Discharge Instructions: - Discharge Summary Sheet sp3 - Indwelling Urinary Catheter Care, Adult sp3 Forms: - Medication Reconciliation Form sp3 - Antibiotic Education sp3 - Prescription Opioid Use sp3 - Patient Portal Instructions sp3 - Leadership Thank You Letter sp3 Signatures: Christopher Song MD MD sp3 YISSEL STOUT RN RN dd2
[2024-06-24 12:57] VITALS: BP 97/56; TEMP 97.8; O2SAT 96
== END 2024-06-24 12:51 | disposition home or self-care (01) ==
LOC: ER 12:06
DX: T83.098A Other mechanical complication of other urinary catheter, initial encounter (principal); Z85.46 Personal history of malignant neoplasm of prostate

== ENCOUNTER 2025-01-19 13:29 | Emergency (ER) | payer OTHER ==
--- NOTE | 2025-01-19 15:04 | RAD REPORT ---
Procedure: Chest Single View HISTORY: Shortness of breath COMPARISON: 2023 FINDINGS: Development of a right paratracheal opacity. The lungs appear clear of acute infiltrate. No significant pleural effusion noted. The heart is normal size. IMPRESSION: Right paratracheal opacity may represent an aneurysm or mass. CT chest with IV contrast recommended
[2025-01-19 15:14] LABS: PT Prothrombin Time 22.3 SECONDS (10-13.0); Protime INR 2.02
[2025-01-19 15:25] LABS: Absolute Basophils 0.1 K/uL (0-0.5); Absolute Eosinophils 0.1 K/uL (0-0.5); Absolute Monocytes 1.2 K/uL (0.1-1.3); Absolute Neutrophil 9.4 K/uL (1.8-8.0); Basophils % 0.6 % (0-1.3); Hematocrit 32.4 % (39.6-49.0); Hemoglobin 10.8 g/dL (13.6-17.9); Lymphocytes % 8.5 % (15.3-44.8); MCH 29.6 pg (27.0-35.0); MCHC 33.2 g/dL (32.0-36.0); MCV 89.2 fL (80-100); MPV 7.9 fL (7.6-11.3); Monocytes % 10.5 % (3.3-12.3); Neutrophils % 79.4 % (41.7-73.7); Platelets 212 thou/uL (152-406); RBC Red Blood Cell Count 3.63 M/uL (4.33-5.43); Red Cell Distribution Width 15.9 % (12.1-15.2)
[2025-01-19 15:29] LABS: Albumin 2.8 g/dL (3.4-5.0); Albumin/Globulin Ratio 0.5 (1.1-1.8); Anion Gap 7.9 mEq/L (5.0-15.0); Bilirubin Direct 0.3 mg/dL (0-0.2); Bilirubin Indirect, Calculated 0.4 mg/dL (0.2-0.8); Bilirubin Total 0.7 mg/dL (0.2-1.0); Globulin 5.1 g/dL (2.3-3.5); Magnesium 2.3 mg/dL (1.6-2.4); Potassium 3.9 mEq/L (3.5-5.1); Protein, Total 7.9 g/dL (6.4-8.2); Troponin High Sensitivity 22.3 pg/mL (<58.9)
[2025-01-19] MEDS ORDERED: NA CHLORIDE 0.9% 500 ML ONE (17:03)
[2025-01-19] MEDS ORDERED: ONDANSETRON 4 MG/2 ML VIAL ONE (17:33)
--- NOTE | 2025-01-19 17:59 | EDPHYS ---
Physician Documentation [facility] Name: Les Abdi Age: 89 yrs Sex: Male : 1935 Arrival Date: 01/19/2025 Time: 13:29 Bed 24 Private MD: ED Physician Vernon Luo HPI: 01/19 17:52 This 89 yrs old Male presents to ER via Wheelchair with complaints of Low ammon BP,CHF. 17:52 The patient has shortness of breath at rest, with light activity. Onset: The ammon symptoms/episode began/occurred 1 day(s) ago. Duration: The symptoms are continuous, and are steadily getting worse. The patient's shortness of breath is aggravated by light activity, walking, is alleviated by rest. WEAK, LOW BP. Associated signs and symptoms: Pertinent positives: non-productive cough. Severity of symptoms: At their worst the symptoms were moderate in the emergency department the symptoms have improved moderately. The patient has experienced similar episodes in the past, several times. Historical: - Allergies: 14:20 No Known Allergies; hb - PMHx: 14:20 CHF; Hypercholesterolemia; Prostate Cancer; hb - PSHx: 14:20 Cholecystectomy; hip; knee; prostatectomy (knee); hb - Immunization history:: Adult Immunizations up to date. - Family history:: not pertinent. ROS: 17:52 Constitutional: Negative for fever, chills, and weight loss, Eyes: Negative for injury, ammon pain, redness, and discharge, ENT: Negative for injury, pain, and discharge, Neck: Negative for injury, pain, and swelling, Cardiovascular: Negative for chest pain, palpitations, and edema, Respiratory: Negative for shortness of breath, cough, wheezing, and pleuritic chest pain, Abdomen/GI: Negative for abdominal pain, nausea, vomiting, diarrhea, and constipation, Back: Negative for injury and pain, : Negative for injury, bleeding, discharge, and swelling, MS/Extremity: Negative for injury and deformity, Psych: Negative for depression, anxiety, suicide ideation, homicidal ideation, and hallucinations, Allergy/Immunology: Negative for hives, rash, and allergies, Endocrine: Negative for neck swelling, polydipsia, polyuria, polyphagia, and marked weight changes, Hematologic/Lymphatic: Negative for swollen nodes, abnormal bleeding, and unusual bruising, 17:52 Skin: Positive for pallor, 17:52 Neuro: Positive for weakness, Exam: 17:52 Constitutional: This is a well developed, well nourished patient who is awake, alert, ammon and in no acute distress. Head/Face: Normocephalic, atraumatic. Eyes: Pupils equal round and reactive to light, extra-ocular motions intact. Lids and lashes normal. Conjunctiva and sclera are non-icteric and not injected. Cornea within normal limits. Periorbital areas with no swelling, redness, or edema. ENT: Nares patent. No nasal discharge, no septal abnormalities noted. Tympanic membranes are normal and external auditory canals are clear. Oropharynx with no redness, swelling, or masses, exudates, or evidence of obstruction, uvula midline. Mucous membranes moist. Neck: Trachea midline, no thyromegaly or masses palpated, and no cervical lymphadenopathy. Supple, full range of motion without nuchal rigidity, or vertebral point tenderness. No Meningismus. Chest/axilla: Normal chest wall appearance and motion. Nontender with no deformity. No lesions are appreciated. Cardiovascular: Regular rate and rhythm with a normal S1 and S2. No gallops, murmurs, or rubs. Normal PMI, no JVD. No pulse deficits. Respiratory: Lungs have equal breath sounds bilaterally, clear to auscultation and percussion. No rales, rhonchi or wheezes noted. No increased work of breathing, no retractions or nasal flaring. Abdomen/GI: Soft, non-tender, with normal bowel sounds. No distension or tympany. No guarding or rebound. No evidence of tenderness throughout. Back: No spinal tenderness. No costovertebral tenderness. Full range of motion. Male : Normal genitalia with no discharge or lesions. Skin: Warm, dry with normal turgor. Normal color with no rashes, no lesions, and no evidence of cellulitis. MS/ Extremity: Pulses equal, no cyanosis. Neurovascular intact. Full, normal range of motion., bilateral aka Neuro: Awake and alert, GCS 15, oriented to person, place, time, and situation. Cranial nerves II-XII grossly intact. Motor strength 5/5 in all extremities. Sensory grossly intact. Cerebellar exam normal. Normal gait. Psych: Awake, alert, with orientation to person, place and time. Behavior, mood, and affect are within normal limits. 17:52 ECG was reviewed by the Attending Physician. Vital Signs: 14:14 BP 100 / 58; Pulse 86; Resp 16; Temp 97.1; Pulse Ox 100% on R/A; Weight 89.27 kg; hb Height 5 ft. 8 in. ; Pain 0/10; 17:32 BP 121 / 71; Pulse 74; Resp 16; Pulse Ox 97% ; jb4 18:00 BP 111 / 60; Pulse 72; Resp 16; Pulse Ox 97% on R/A; jb4 20:39 BP 120 / 65; Pulse 78; Resp 16; Pulse Ox 97% on R/A; jb4 14:14 Body Mass Index 29.92 (89.27 kg, 172.72 cm) hb 14:14 Pain Scale: Adult hb MDM: 13:52 Medical Screening Exam initiated ammon 17:55 Differential diagnosis: Anemia CHF exacerbation, Myocardial Infarction pneumonia, ammon pulmonary edema, reactive airway disease, Sepsis Unstable Angina. Antibiotic administration: Not indicated. Differential Diagnosis sepsis, flu. Immunization status: Pneumococcal vaccine: within last 5 years. Influenza vaccine: within last 5 years. Data reviewed: vital signs, nurses notes, lab test result(s), EKG, radiologic studies, plain films. Consideration of Admission/Observation Escalation of care including admission/observation considered. I considered the following discharge prescriptions or medication management in the emergency department Medications were administered in the Emergency Department. See MAR. Independent interpretation of the following test(s) in the Emergency Department EKG: See my EKG interpretation above. Test considered but Not performed: Ultrasound NO 2 D ECHO. Care significantly affected by the following chronic conditions: Congestive Heart Failure, Cancer, HIGH CHLESTEROL. Counseling: I had a detailed discussion with the patient and/or guardian regarding the historical points, exam findings, and any diagnostic results supporting the discharge/admit diagnosis, lab results, radiology results, the need for further work-up and treatment in the hospital, the need to transfer to another facility, for higher level of care, [facility] does not immediately have the required specialist. 01/19 13:53 Order name: Basic Metabolic Panel; Complete Time: 17:35 [facility] 01/19 13:53 Order name: CBC with Diff; Complete Time: 17:35 [facility] 01/19 13:53 Order name: LFT's; Complete Time: 17:35 01/19 13:53 Order name: Magnesium; Complete Time: 17:35 01/19 13:53 Order name: NT PRO-BNP; Complete Time: 17:35 01/19 13:53 Order name: PT-INR; Complete Time: 17:35 01/19 13:53 Order name: Troponin HS; Complete Time: 17:35 01/19 13:53 Order name: Lipase; Complete Time: 17:35 01/19 13:53 Order name: XRAY Chest (1 view); Complete Time: 17:35 01/19 17:38 Order name: CT Aorta for Dissection; Complete Time: 19:58 ammon 01/19 13:53 Order name: EKG; Complete Time: 13:54 01/19 13:53 Order name: Cardiac monitoring; Complete Time: 16:59 01/19 13:53 Order name: EKG - Nurse/Tech; Complete Time: 15:10 01/19 13:53 Order name: IV Saline Lock; Complete Time: 15:10 01/19 13:53 Order name: Labs collected and sent; Complete Time: 15:10 01/19 13:53 Order name: O2 Per Protocol; Complete Time: 16:59 01/19 13:53 Order name: O2 Sat Monitoring; Complete Time: 16:59 [facility] EC:52 Rate is 84 beats/min. Rhythm is regular. QRS [place] is Normal. [place] interval is normal. QRS ammon interval is normal. QT interval is normal. No Q waves. T waves are Normal. No ST changes noted. Clinical impression: NSR w/ Non-specific ST/T Changes and No evidence of ischemia. Interpreted by me. Reviewed by me. Administered Medications: 17:12 Drug: NS 0.9% IV 500 ml 500 ml IV at 75 ml/hr once Volume: 500 ml; Route: IV; Rate: 75 jb4 ml/hr; Site: left antecubital; 17:36 Drug: Ondansetron IVP 4 mg IVP once; over 2 minutes Route: IVP; Site: left antecubital; jb4 Disposition Summary: 01/19/25 17:58 Transfer Ordered Notes: Transfer Location: [facility] ammon Reason: Higher level of care ammon Condition: Fair ammon Problem: new ammon Symptoms: have improved ammon Accepting Physician: TO OR(01/19/25 21:26) jb4 Diagnosis - Weakness ammon - Hypotension, unspecified ammon - Chronic combined systolic (congestive) and diastolic (congestive) heart failure ammon - Syncope Near ammon - Malignant neoplasm of upper lobe, 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 EDUT EDMS 20:03 17:58 TO OR ammon ammon 21:26 20:03 TO OR ammon jb4
--- NOTE | 2025-01-19 17:59 | ER ---
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 Coronavirus screen: At this time, the client does not indicate any symptoms associated with coronavirus-19. Ebola Screen: No symptoms or risks identified at this time. Initial Sepsis Screen: Does the patient meet any 2 criteria? No. Patient's initial sepsis screen is negative. Does the patient have a suspected source of infection? No. Patient's initial sepsis screen is negative. Risk Assessment: Do you want to hurt yourself or someone else? Patient reports no desire to harm self or others. Onset of symptoms was January 18, 2025. 14:14 Method Of Arrival: Wheelchair hb 14:14 Acuity: RAIN 3 hb Historical: - Allergies: 14:20 No Known Allergies; hb - PMHx: 14:20 CHF; Hypercholesterolemia; Prostate Cancer; hb - PSHx: 14:20 Cholecystectomy; hip; knee; prostatectomy (knee); hb - Immunization history:: Adult Immunizations up to date. - Family history:: not pertinent. Screenin:00 [facility] ED Fall Risk Assessment (Adult) History of falling in the last 3 months, jb4 including since admission No falls in past 3 months (0 pts) Confusion or Disorientation No (0 pts) Intoxicated or Sedated No (0 pts) Impaired Gait No (0 pts) Mobility Assist Device Used No (0 pt) Altered Elimination No (0 pt) Score/Fall Risk Level 0 - 2 = Low Risk Oriented to surroundings, Maintained a safe environment. Abuse screen: Denies threats or abuse. Nutritional screening: No deficits noted. Tuberculosis screening: No symptoms or risk factors identified. Assessment: 16:45 General: Appears in no apparent distress. comfortable, Behavior is calm, cooperative, jb4 appropriate for age. Pain: Denies pain. Neuro: Level of Consciousness is awake, alert, obeys commands, Oriented to person, place, time, situation. Cardiovascular: Patient's skin is warm and dry. Respiratory: Airway is patent Respiratory effort is even, unlabored, Respiratory pattern is regular, symmetrical. Derm: Skin is intact, Skin is pink, warm \T\ dry. Musculoskeletal: Circulation, motion, and sensation intact. Range of motion: intact in all extremities. 18:00 Reassessment: Patient appears in no apparent distress at this time. Patient and/or jb4 family updated on plan of care and expected duration. Pain level reassessed. Patient is alert, oriented x 3, equal unlabored respirations, skin warm/dry/pink. 19:00 Reassessment: Patient appears in no apparent distress at this time. Patient and/or jb4 family updated on plan of care and expected duration. Pain level reassessed. Patient is alert, oriented x 3, equal unlabored respirations, skin warm/dry/pink. 20:00 Reassessment: Patient appears in no apparent distress at this time. Patient and/or jb4 family updated on plan of care and expected duration. Pain level reassessed. Patient is alert, oriented x 3, equal unlabored respirations, skin warm/dry/pink. 21:25 Reassessment: Patient appears in no apparent distress at this time. Patient and/or jb4 family updated on plan of care and expected duration. Pain level reassessed. Patient is alert, oriented x 3, equal unlabored respirations, skin warm/dry/pink. Vital Signs: 14:14 BP 100 / 58; Pulse 86; Resp 16; Temp 97.1; Pulse Ox 100% on R/A; Weight 89.27 kg; hb Height 5 ft. 8 in. ; Pain 0/10; 17:32 BP 121 / 71; Pulse 74; Resp 16; Pulse Ox 97% ; jb4 18:00 BP 111 / 60; Pulse 72; Resp 16; Pulse Ox 97% on R/A; jb4 20:39 BP 120 / 65; Pulse 78; Resp 16; Pulse Ox 97% on R/A; jb4 14:14 Body Mass Index 29.92 (89.27 kg, 172.72 cm) hb 14:14 Pain Scale: Adult hb ED Course: 13:33 Patient arrived in ED. mr 13:52 Vernon Luo MD is Attending Physician. ammon 14:20 Triage completed. hb 14:20 Arm band placed on. hb 14:37 XRAY Chest (1 view) In Process Unspecified. EDMS 15:10 Lipase Sent. bc6 15:10 Basic Metabolic Panel Sent. bc6 15:10 CBC with Diff Sent. bc6 15:10 NT PRO-BNP Sent. bc6 15:10 LFT's Sent. bc6 15:10 Magnesium Sent. bc6 15:10 PT-INR Sent. bc6 15:10 Troponin HS Sent. bc6 15:10 Initial lab(s) drawn, by mo, sent to lab. Inserted saline lock: 22 gauge in left bc6 antecubital area, using aseptic technique. Blood collected. Flushed with 10 mL NS. 18:00 Patient has correct armband on for positive identification. Bed in low position. Call jb4 light in reach. Side rails up X 1. Provided Education on: plan of care. 18:13 initiated transfer to [facility], faxed chart to ID ER as requested by ID transfer bd center. 18:26 Renny William, RN is Primary Nurse. jb4 18:28 CT Aorta for Dissection In Process Unspecified. EDMS 19:48 Re-faxed pt clinicals to ID. rv1 20:25 Pt accepted to [facility] ER by Dr Delvalle. rv1 21:26 No provider procedures requiring assistance completed. Patient transferred, IV remains jb4 in place. Administered Medications: 17:12 Drug: NS 0.9% IV 500 ml 500 ml IV at 75 ml/hr once Volume: 500 ml; Route: IV; Rate: 75 jb4 ml/hr; Site: left antecubital; 17:36 Drug: Ondansetron IVP 4 mg IVP once; over 2 minutes Route: IVP; Site: left antecubital; jb4 Medication: 21:25 VIS not applicable for this client. jb4 Outcome: 17:58 ER care complete, transfer ordered by . ammon 21:26 Transferred by ground EMS to [facility] Transfer form completed. jb4 X-rays sent w/ patient. 21:26 Condition: stable 21:26 Discharge instructions given to patient, family, Instructed on the need for transfer, Demonstrated understanding of instructions, 21:26 Patient left the ED. jb4 Signatures: Dispatcher [employer] EDMS Morena Farris Corey, MD MD cha Rivera, Steph, Reg Reg mr Giuliana Srinivasan, RN RN Renny Frost RN RN [email or web address] Teena Batres rv1 Trupti Moser 6 Corrections: (The following items were deleted from the chart) 14:20 14:14 Chief complaint: Generalized weakness and home BP 90s/50s x 2 days, instructed by [facility] telehealth to come to ED
--- NOTE | 2025-01-19 19:05 | RAD REPORT ---
EXAM: CTA of the chest, abdomen and pelvis HISTORY: Chest and abdominal pain COMPARISON: None TECHNIQUE: Multiple contiguous axial images were obtained a CTA of the chest and abdomen with contras t per aortic dissection protocol. Sagittal and coronal 3-D MIP reformats were performed. 100 cc Isovue-370 administered intravenously.Automated exposure control, adjustment of the mA and kV accordi ng to the patient size, and iterative reconstruction. Unless otherwise specified, incidental findings do not require dedicated imaging follow-up. FINDINGS: An aortic dissection not seen. An aorto biiliac stent has been placed into an abdominal aortic aneurysm. The stent is patent. No per iaortic hematoma. 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 , SMA and RAUL do not demonstrate a significant abnormality. Renal arteries do not demonstrate a significant abnormality. 5.3 cm mass medial right upper lobe abuts the mediastinum. A right upper lobe pulmonary artery is enc ased by the mass.. The mass extends into the mediastinal fat. 1 cm mediastinal and right hilar lymph node. Minimal right pleural effusion. Liver, spleen, pancreas, adrenals, kidneys and bladder do not demonstrate a significant abnormality Apparent thickening wall distal stomach could be secondary to incomplete distention or inflammation. Prostatectomy. Left hip arthroplasty. No evidence of diverticulitis. IMPRESSION: 5.3 cm mass medial right upper lobe likely bronchogenic carcinoma
[2025-01-19 21:42] VITALS: TEMP 97.1
[2025-01-19 21:43] VITALS: O2SAT 97
[2025-01-19 21:46] VITALS: BP 120/65
--- NOTE | 2025-01-20 10:58 | EKG ---
Test Date: 2025-01-19 Test Time: 15:30:57 Outpatient Receptionist: HEIDI MEASUREMENT RESULTS: Intervals: Rate: 84 VA: 166 QRSD: 126 QT: 416 QTc: 491 [place]: P: 71 VA: 166 QRS: -43 T: 36 INTERPRETIVE STATEMENTS: Normal sinus rhythm Left axis deviation Nonspecific intraventricular block Abnormal ECG Compared to ECG 05/19/2024 14:43:37 Left-axis deviation now present Sinus arrhythmia no longer present Ventricular premature complex(es) no longer present Myocardial infarct finding no longer present Electronically Signed On 01-20-25 10:56:24 CDT by Gary Martínez
== END 2025-01-19 21:26 ==
LOC: ER 13:29
DX: I95.9 Hypotension, unspecified (principal); I50.42 Chronic combined systolic (congestive) and diastolic (congestive) heart failure; R55 Syncope and collapse; C34.91 Malignant neoplasm of unspecified part of right bronchus or lung; Z85.46 Personal history of malignant neoplasm of prostate
CPT/HCPCS: 93005; 85025; 80048; 36415; 83735; 85610; 80076; 84484; 83690; 83880; 71275; 74175; 71045; 96374; 99285; Q9967; J2405; J7040

== ENCOUNTER 2025-02-04 22:11 | Emergency (ER) | payer OTHER ==
[2025-02-04 23:17] LABS: Absolute Basophils 0.1 K/uL (0-0.5); Absolute Eosinophils 0.1 K/uL (0-0.5); Absolute Lymphocytes (CBC) 1.1 K/uL (0.7-4.9); Absolute Monocytes 1.5 K/uL (0.1-1.3); Basophils % 0.6 % (0-1.3); Eosinophils % 0.7 % (0-4.4); Hematocrit 25.5 % (39.6-49.0); Hemoglobin 8.7 g/dL (13.6-17.9); Lymphocytes % 7.6 % (15.3-44.8); MCH 29.6 pg (27.0-35.0); MCHC 34.2 g/dL (32.0-36.0); MCV 86.4 fL (80-100); MPV 7.5 fL (7.6-11.3); Monocytes % 10.4 % (3.3-12.3); Neutrophils % 80.7 % (41.7-73.7); Platelets 212 thou/uL (152-406); RBC Red Blood Cell Count 2.95 M/uL (4.33-5.43)
[2025-02-04 23:37] LABS: Albumin 2.5 g/dL (3.4-5.0); Albumin/Globulin Ratio 0.6 (1.1-1.8); Anion Gap 8.6 mEq/L (5.0-15.0); Bilirubin Total 0.7 mg/dL (0.2-1.0); Globulin 4.2 g/dL (2.3-3.5); Potassium 3.6 mEq/L (3.5-5.1); Protein, Total 6.7 g/dL (6.4-8.2); Troponin High Sensitivity 49.4 pg/mL (<58.9)
[2025-02-04 23:40] LABS: PT Prothrombin Time 14.8 SECONDS (10-13.0); PTT, Activated Partial Thromb 30.4 SECONDS (27.2-37.4); Protime INR 1.32
[2025-02-05] MEDS ORDERED: AZITHROMYCIN 500 MG INJ IVPB ONE (01:36)
[2025-02-05] MEDS ORDERED: NA CHLORIDE 0.9% 250 ML ONE (01:36)
[2025-02-05] MEDS ORDERED: CEFTRIAXONE 1000 MG/VIAL ONE (01:36)
[2025-02-05] MEDS ORDERED: NA CHLORIDE 0.9% 50 ML ONE (01:36)
--- NOTE | 2025-02-05 02:55 | EDPHYS ---
Physician Documentation [facility] Name: Les Abdi Age: 89 yrs Sex: Male : 1935 Arrival Date: 02/04/2025 Time: 22:11 Bed 3 Private MD: ED Physician Holly Nicholson HPI: 02/04 23:22 This 89 yrs old Male presents to ER via EMS with complaints of POSSIBLE sw6 SEPSIS. 23:22 The patient reports fever, that was measured at 102.3 degrees Fahrenheit. Onset: The sw6 symptoms/episode began/occurred today. Modifying factors: Seen at the [facility] today for bronchoscopy. Associated signs and symptoms: Pertinent positives: altered mental status,\E\ Pertinent negatives: abdominal pain, cough, diarrhea, hemoptysis, nausea, runny nose, shortness of breath, sore throat, swelling, vomiting. The patient has been recently seen by a physician: earlier today. The patient presents from home with EMS for evaluation for fever and altered mental status. He did have a bronchoscopy today at the [facility] as an outpatient and was given sedatives prior to the procedure. They returned home around noon today. His reports he has not yet returned to his normal baseline self since having the procedure. EMS was called and he was found to be febrile at 102.3 at home as well as tachycardic. He was given a gram of Tylenol as well as IV fluids and brought to the ER for evaluation. No cough. No congestion. No chest pain or pressure. No nausea, vomiting or diarrhea. No sick contacts. He denies complaints upon arrival to the ER. His reports he has only had a couple sips of water while at the [facility]. They did get him chicken and will soup this evening but he did not have any. Therefore he last ate yesterday prior to midnight. He is a former smoker. He has a history of prostate cancer and receives an injection approximately every 6 months. No history of diabetes or high blood pressure. Here for evaluation.. Historical: - Allergies: 22:38 No Known Allergies; al5 - PMHx: 22:38 CHF; Hypercholesterolemia; Prostate Cancer; Atrial fibrillation; prostate cancer; iron al5 deficiency; - PSHx: 22:38 Cholecystectomy; hip; knee; prostatectomy (knee); al5 - Immunization history:: Adult Immunizations up to date. - Infectious Disease History:: Denies. - Social history:: Smoking status: Patient denies any tobacco usage or history of. - History obtained from: . ROS: 23:22 Cardiovascular: Negative for chest pain, palpitations, and edema, Respiratory: Negative sw6 for shortness of breath, cough, wheezing, and pleuritic chest pain, Abdomen/GI: Negative for abdominal pain, nausea, vomiting, diarrhea, and constipation, 23:22 Constitutional: Positive for fever, malaise, 23:22 Neuro: Positive for altered mental status, 23:22 All other systems are negative, Exam: 23:22 Constitutional: This is a well developed, well nourished patient who is awake, alert, sw6 and in no acute distress. Eyes: Pupils equal round and reactive to light, extra-ocular motions intact. Lids and lashes normal. Conjunctiva and sclera are non-icteric and not injected. Cornea within normal limits. Periorbital areas with no swelling, redness, or edema. ENT: Nares patent. No nasal discharge, no septal abnormalities noted. Tympanic membranes are normal and external auditory canals are clear. Oropharynx with no redness, swelling, or masses, exudates, or evidence of obstruction, uvula midline. Mucous membranes moist. Cardiovascular: Regular rate and rhythm with a normal S1 and S2. No gallops, murmurs, or rubs. Normal PMI, no JVD. No pulse deficits. Respiratory: Lungs have equal breath sounds bilaterally, clear to auscultation and percussion. No rales, rhonchi or wheezes noted. No increased work of breathing, no retractions or nasal flaring. Abdomen/GI: Soft, non-tender, with normal bowel sounds. No distension or tympany. No guarding or rebound. No evidence of tenderness throughout. Skin: Warm, dry with normal turgor. Normal color with no rashes, no lesions, and no evidence of cellulitis. MS/ Extremity: Pulses equal, no cyanosis. Neurovascular intact. Full, normal range of motion. 23:43 ECG was reviewed by the Attending Physician. 6 Vital Signs: 22:36 BP 124 / 60; Pulse 85; Resp 18; Temp 99.3; Pulse Ox 94% on R/A; Weight 65.77 kg; Height al5 5 ft. 8 in. ; 23:00 BP 132 / 53; Pulse 63; Resp 18; Pulse Ox 93% ; al5 23:30 BP 114 / 45; Pulse 97; Resp 17; Pulse Ox 93% ; al5 02/05 00:00 BP 122 / 49; Pulse 70; Resp 16; Pulse Ox 93% ; al5 00:30 BP 103 / 49; Pulse 75; Resp 14; Temp 98.1; Pulse Ox 93% ; al5 01:00 BP 122 / 50; Pulse 83; Resp 15; Pulse Ox 95% ; al5 01:30 BP 114 / 57; Pulse 79; Resp 18; Pulse Ox 96% ; al5 02:00 BP 111 / 48; Pulse 75; Resp 15; Pulse Ox 94% ; al5 02:30 BP 113 / 52; Pulse 77; Resp 16; Pulse Ox 95% ; al5 03:00 BP 103 / 54; Pulse 71; Resp 14; Pulse Ox 96% ; al5 03:30 BP 124 / 61; Pulse 79; Resp 15; Pulse Ox 97% ; al5 03:45 BP 116 / 54; Pulse 70; Resp 15; Pulse Ox 96% ; ca5 02/04 22:36 Body Mass Index 22.05 (65.77 kg, 172.72 cm) [facility] MDM: 02/04 22:29 Medical Screening Exam initiated 23:22 Differential diagnosis: viral Infection, bacterial infection, URI, bronchitis, [email or web address]] pneumonia UTI. Data reviewed: vital signs, nurses notes, EMS record. 02/05 00:53 Data reviewed: lab test result(s), EKG, radiologic studies, plain films. ED course: The [facility] [email or web address]] patient is doing well in ER. His laboratory studies show a leukocytosis of 14.8 thousand as well as a suspected chronic anemia with hemoglobin 8.7. His chest x-ray shows a faint opacification in the left lateral lung base which may represent atelectasis versus infiltrate. It is also concerning for a lung cancer in the right upper lung. Will start the patient on IV antibiotics. He does require admission for continued management and the family does prefer the [facility].. 02:53 ED course: The patient was accepted for transfer to the [facility] by Dr. Price. He is pending [facility] [email or web address] transportation.. 02/04 22:44 Order name: Blood Culture Adult (2) [facility] [email or web address]] 02/04 22:44 Order name: CBC with Diff; Complete Time: 00:50 02/05 00:50 Interpretation: Abnormal: Leukocytosis, Anemia. 02/04 22:44 Order name: CMP; Complete Time: 00:50 02/05 00:51 Interpretation: Abnormal: HYPOALBUMINEMIA. 02/04 22:44 Order name: Lactate w/ 2H reflex if indic.; Complete Time: 00:50 02/05 00:51 Interpretation: Within normal limits. 02/04 22:44 Order name: Protime (+inr); Complete Time: 00:50 02/05 00:51 Interpretation: Within normal limits. 02/04 22:44 Order name: Ptt, Activated; Complete Time: 00:50 02/05 00:51 Interpretation: Within normal limits. 02/04 22:44 Order name: Troponin High Sensitivity; Complete Time: 00:50 02/05 00:51 Interpretation: Within normal limits. 02/04 22:44 Order name: Chest Single View XRAY 02/05 00:53 Interpretation: Abnormal. 02/04 22:44 Order name: Accucheck; Complete Time: 23:03 02/04 22:44 Order name: Cardiac monitoring; Complete Time: 23:03 02/04 22:44 Order name: EKG - Nurse/Tech; Complete Time: 23:03 02/04 22:44 Order name: IV Saline Lock - Large Bore; Complete Time: 23:03 02/04 22:44 Order name: Labs collected and sent; Complete Time: 23:03 02/04 22:44 Order name: O2 Per Protocol; Complete Time: 23:03 02/04 22:44 Order name: O2 Sat Monitoring; Complete Time: 23:03 02/04 22:44 Order name: Vital Signs; Complete Time: 23: EC/26 23:43 Rate is 88 beats/min. Rhythm is regular. QRS interval is prolonged. QT interval is sw6 normal. No Q waves. T waves are Normal. No ST changes noted. Administered Medications: 02/05 01:44 Drug: Rocephin IV 1 grams IV at calculated rate once; Given slow IV push per pharmacy al5 instructions Route: IV; Rate: calculated rate; Site: right antecubital; 02:18 Follow up: Response: No adverse reaction; IV Status: Completed infusion; IV Intake: [id number] 02:18 Drug: Zithromax IVPB 500 mg IVPB once over 1 hrs; mix in 250 mL NS Route: IVPB; Infused al5 Over: 1 hrs; Site: right antecubital; 03:25 Follow up: Response: No adverse reaction; IV Status: Completed infusion; IV Intake: al5 250ml Disposition Summary: 02/05/25 02:54 Transfer Ordered Notes: Transfer Location: [facility] sw6 Reason: Higher level of care sw6 Condition: Stable sw6 Problem: new sw6 Symptoms: have improved sw6 Accepting Physician: Dr. Price(02/05/25 04:14) al5 Diagnosis - Lobar pneumonia, unspecified organism sw6 - Tachycardia, unspecified sw6 - Fever, unspecified sw6 Discharge Instructions: - Discharge Summary Sheet rv1 Forms: - SBAR form rv1 - Medication Reconciliation Form sw6 Signatures: Dispatcher [employer] EDMO Holly Nicholson MD MD sw6 Cielo Ewing RN RN al5 Corrections: (The following items were deleted from the chart) 02/04 22:44 22:44 Chest Single View+RAD.RAD.[email or web address] ordered. [facility] 02/05 02:54 02:54 Dr. Price sw6 sw6 04:14 02:54 Dr. Price sw6 al5
--- NOTE | 2025-02-05 02:55 | ER ---
Nurse's Notes [facility] Name: Les Abdi Age: 89 yrs Sex: Male : 1935 Arrival Date: 02/04/2025 Time: 22:11 Bed 3 Private MD: Diagnosis: Lobar pneumonia, unspecified organism;Tachycardia, unspecified;Fever, unspecified Presentation: 02/04 22:36 Chief complaint: Patient states: had a bronchoscopy done today at the [place], was given al5 anesthesia. after he returned home, has not been his normal self since. ems states he had a fever and low oxygen levels upon arrival. Coronavirus screen: At this time, the client does not indicate any symptoms associated with coronavirus-19. Ebola Screen: No symptoms or risks identified at this time. Initial Sepsis Screen: Does the patient meet any 2 criteria? HR > 90 bpm. No. Patient's initial sepsis screen is negative. Does the patient have a suspected source of infection? No. Patient's initial sepsis screen is negative. Risk Assessment: Do you want to hurt yourself or someone else? Patient reports no desire to harm self or others. Onset of symptoms was February 04, 2025. 22:36 Method Of Arrival: EMS: [facility] al5 22:36 Acuity: RAIN 3 al5 22:36 Care prior to arrival: Medication(s) given: Normal saline infusion, 1000 mL, IV al5 initiated. 18 GA, in the right antecubital area, Glucose check: 153. Triage Assessment: 22:39 General: Appears in no apparent distress. comfortable, Behavior is calm, cooperative. al5 Pain: Denies pain. EENT: No signs and/or symptoms were reported regarding the EENT system. Neuro: Level of Consciousness is awake, alert, obeys commands, Oriented to person, place, time, situation. Cardiovascular: Capillary refill < 3 seconds Patient's skin is warm and dry. Rhythm is atrial fibrillation. Respiratory: Airway is patent Respiratory effort is even, unlabored, Respiratory pattern is regular, symmetrical, Breath sounds are clear bilaterally. GI: Abdomen is round non-distended. : No signs and/or symptoms were reported regarding the genitourinary system. Derm: Skin is intact, Skin is pink, warm \T\ dry. normal. Musculoskeletal: No signs and/or symptoms reported regarding the musculoskeletal system. Historical: - Allergies: 22:38 No Known Allergies; al5 - PMHx: 22:38 CHF; Hypercholesterolemia; Prostate Cancer; Atrial fibrillation; prostate cancer; iron al5 deficiency; - PSHx: 22:38 Cholecystectomy; hip; knee; prostatectomy (knee); al5 - Immunization history:: Adult Immunizations up to date. - Infectious Disease History:: Denies. - Social history:: Smoking status: Patient denies any tobacco usage or history of. - History obtained from: . Screenin:40 [facility] ED Fall Risk Assessment (Adult) History of falling in the last 3 months, al5 including since admission No falls in past 3 months (0 pts) Confusion or Disorientation No (0 pts) Intoxicated or Sedated No (0 pts) Impaired Gait Yes (1 pt) Mobility Assist Device Used Yes (1 pt) Altered Elimination Yes (1 pt) Score/Fall Risk Level 3 or more points = High Risk Oriented to surroundings, Maintained a safe environment, Hourly rounding (assess needs \T\ fall precautionary measures) done, Utilized family, sitter, or virtual apartment leasing consultant as indicated. Abuse screen: Denies threats or abuse. Denies injuries from another. Nutritional screening: No deficits noted. Tuberculosis screening: No symptoms or risk factors identified. Assessment: 22:40 Reassessment: see triage assessment. al5 23:37 Reassessment: Patient appears in no apparent distress at this time. No changes from al5 previously documented assessment. Patient and/or family updated on plan of care and expected duration. Pain level reassessed. Patient is alert, oriented x 3, equal unlabored respirations, skin warm/dry/pink. 02/05 01:31 Reassessment: Patient appears in no apparent distress at this time. No changes from al5 previously documented assessment. Patient and/or family updated on plan of care and expected duration. Pain level reassessed. Patient is alert, oriented x 3, equal unlabored respirations, skin warm/dry/pink. 02:23 Reassessment: Patient appears in no apparent distress at this time. No changes from al5 previously documented assessment. Patient and/or family updated on plan of care and expected duration. Pain level reassessed. Patient is alert, oriented x 3, equal unlabored respirations, skin warm/dry/pink. 03:45 Reassessment: Patient appears in no apparent distress at this time. No changes from al5 previously documented assessment. Patient and/or family updated on plan of care and expected duration. Pain level reassessed. Patient is alert, oriented x 3, equal unlabored respirations, skin warm/dry/pink. Vital Signs: 02/04 22:36 BP 124 / 60; Pulse 85; Resp 18; Temp 99.3; Pulse Ox 94% on R/A; Weight 65.77 kg; Height al5 5 ft. 8 in. ; 23:00 BP 132 / 53; Pulse 63; Resp 18; Pulse Ox 93% ; al5 23:30 BP 114 / 45; Pulse 97; Resp 17; Pulse Ox 93% ; al5 02/05 00:00 BP 122 / 49; Pulse 70; Resp 16; Pulse Ox 93% ; al5 00:30 BP 103 / 49; Pulse 75; Resp 14; Temp 98.1; Pulse Ox 93% ; al5 01:00 BP 122 / 50; Pulse 83; Resp 15; Pulse Ox 95% ; al5 01:30 BP 114 / 57; Pulse 79; Resp 18; Pulse Ox 96% ; al5 02:00 BP 111 / 48; Pulse 75; Resp 15; Pulse Ox 94% ; al5 02:30 BP 113 / 52; Pulse 77; Resp 16; Pulse Ox 95% ; al5 03:00 BP 103 / 54; Pulse 71; Resp 14; Pulse Ox 96% ; al5 03:30 BP 124 / 61; Pulse 79; Resp 15; Pulse Ox 97% ; al5 03:45 BP 116 / 54; Pulse 70; Resp 15; Pulse Ox 96% ; al5 02/04 22:36 Body Mass Index 22.05 (65.77 kg, 172.72 cm) al5 ED Course: 02/04 22:12 Patient arrived in ED. [email or web address] 22:29 Holly Nicholson MD is Attending Physician. sw6 22:36 Cielo Ewing RN is Primary Nurse. al5 22:38 Triage completed. al5 22:40 Arm band placed on right wrist. Patient placed in the treatment room, in view of staff al5 members, on oxygen, on manager monitoring, on pulse oximetry. 22:40 Patient has correct armband on for positive identification. Bed in low position. Call al5 light in reach. Side rails up X2. at bedside. Provided Education on: plan of care. 22:41 No provider procedures requiring assistance completed. Maintain EMS IV. Dressing al5 intact. Good blood return noted. Site clean \T\ dry. Gauge \T\ site: 18G RAC. Flushed with 10 mL NS. 22:56 Chest Single View XRAY In Process Unspecified. EDMS 02/05 01:04 Initiated transfer with Suzan at [facility]. Faxed pt clinicals to [phone]. rv1 02:42 Doc to Doc with ER physician at [facility]. rv1 02:[address] Price to [facility] ER. Report # [phone]. rv1 03:45 Patient transferred, IV remains in place. al5 Administered Medications: 01:44 Drug: Rocephin IV 1 grams IV at calculated rate once; Given slow IV push per pharmacy al5 instructions Route: IV; Rate: calculated rate; Site: right antecubital; 02:18 Follow up: Response: No adverse reaction; IV Status: Completed infusion; IV Intake: [id number] 02:18 Drug: Zithromax IVPB 500 mg IVPB once over 1 hrs; mix in 250 mL NS Route: IVPB; Infused al5 Over: 1 hrs; Site: right antecubital; 03:25 Follow up: Response: No adverse reaction; IV Status: Completed infusion; IV Intake: al5 250ml Medication: 02/04 22:40 VIS not applicable for this client. al5 Intake: 02/05 02:18 IV: 50ml; Total: 50ml. al5 03:25 IV: 250ml; Total: 300ml. al5 Outcome: 02:54 ER care complete, transfer ordered by MD. lee 03:50 Transferred by [facility]. to [facility] al5 03:50 Condition: stable 03:50 Instructed on the need for transfer, 04:14 Patient left the ED. al5 Signatures: Dispatcher [employer] EDMS Olga Murray6 Teena Batres rv1 Holly Nicholson MD MD sw6 Langhorst, Amanda, RN RN al5 Corrections: (The following items were deleted from the chart) 03:18 00:30 BP 103 / 49; Pulse 75bpm; Resp 14bpm; Pulse Ox 93%; al5 al5
[2025-02-05 04:24] VITALS: TEMP 98.1
[2025-02-05 04:32] VITALS: BP 116/54; O2SAT 96
--- NOTE | 2025-02-05 06:00 | RAD REPORT ---
CLINICAL HISTORY: FEVER. COMPARISON: Report only for a CTA chest, abdomen, and pelvis from January 19, 2025. Images not availabl e at this time. TECHNIQUE: Single view AP chest radiograph(s). FINDINGS: Faint opacification in the left lateral lung base. Opacification along the medial right upper lung ab utting the mediastinum. No pleural effusion. No pneumothorax. Nonenlarged cardiomediastinal silhouette. No significant osseous abnormality. IMPRESSION: 1. Faint opacification in the left lateral lung base, atelectasis versus infiltrate. 2. Opacification along the medial right upper lung abutting the mediastinum, concerning for maligna ncy, especially when correlated with the report for the recent CT. Electronically signed by: Jackie Hurley MD 02/04/2025 11:12 PM CDT RP Due to temporary technical issues with the PACS/[employer] reporting system, reports are being demetris d by the in-house radiologist without review as a courtesy to ensure prompt reporting the interpreting radiologist is fully responsible for the content of the report. Transcribed Date/Time: 02/05/2025 6:00 AM
--- NOTE | 2025-02-09 11:35 | EKG ---
Test Date: 2025-02-04 Test Time: 22:45:19 Lease Buyer: GRACE MEASUREMENT RESULTS: Intervals: Rate: 88 AR: 162 QRSD: 130 QT: 390 QTc: 471 [place]: P: 47 AR: 162 QRS: -17 T: -28 INTERPRETIVE STATEMENTS: Sinus rhythm with premature atrial complexes Nonspecific intraventricular block Abnormal ECG Compared to ECG 01/19/2025 15:30:57 Atrial premature complex(es) now present Left-axis deviation no longer present Electronically Signed On 02-09-25 11:24:36 CDT by Gary Martínez
== END 2025-02-05 04:14 ==
LOC: ER 22:11
DX: J18.1 Lobar pneumonia, unspecified organism (principal); R00.0 Tachycardia, unspecified; I50.9 Heart failure, unspecified; I48.91 Unspecified atrial fibrillation
CPT/HCPCS: 96365; 96367; 93005; 87040 ×2; 85025; 36415; 85610; 83605; 85730; 84484; 80053; 71045; 99285; J7050; J0696